=== PATIENT | female | born 1950 | race American Indian/Alaskan Native ===

== ENCOUNTER 2017-10-11 21:26 | Emergency (ER) | payer BC ==
[2017-10-11 21:33] VITALS: BMI 34.1
[2017-10-11] MEDS ORDERED: Oxymetazoline 0.05% Nasal Spray (30 ml) NS STA (21:47)
[2017-10-11] MEDS ORDERED: Lidocaine 2% Inj (20ml) SC STA (21:48)
--- NOTE | 2017-10-11 21:49 | ED PDOC ---
Arrival/HPI - General Chief Complaint: ENT Problem Time Seen by Provider: 10/11/17 21:46 Historian: Patient - History of Present Illness Narrative History of Present Illness (Text): 10/11/17 21:47 67 year old female, whose past medical history includes asthma, who presents to the Emergency department complaining of a nosebleed on the left side. Patient notes she was sleeping when she felt her nose itch and after scratching, noticed it was bleeding. Patient denies any fever, chills, chest pain, shortness of breath, nausea, vomiting, diarrhea, back pain, neck pain, headache , dizziness, or any other complaints. Time/Duration: 1-3 hours Symptom Onset: Sudden Symptom Course: Unchanged Activities at Onset: Light Context: Home (sleeping) Past Medical History - Provider Review Nursing Documentation Reviewed: Yes - Infectious Disease Hx of Infectious Diseases: None - Tetanus Immunization Tetanus Immunization: Unknown - Cardiac Hx Cardiac Disorders: Yes Hx Hypertension: Yes - Pulmonary Hx Respiratory Disorders: Yes Hx Asthma: Yes - Neurological Hx Neurological Disorder: Yes (TIA; current.) - HEENT Hx HEENT Disorder: No - Renal Hx Renal Disorder: No - Endocrine/Metabolic Hx Endocrine Disorders: No - Hematological/Oncological Hx Blood Disorders: No - Integumentary Hx Dermatological Disorder: Yes (Healing rash noted to back.) - Musculoskeletal/Rheumatological Hx Musculoskeletal Disorders: No Hx Falls: No - Gastrointestinal Hx Gastrointestinal Disorders: No - Genitourinary/Gynecological Hx Genitourinary Disorders: No - Psychiatric Hx Psychophysiologic Disorder: No Hx Substance Use: No - Past Surgical History Past Surgical History: No Previous - Suicidal Assessment Feels Threatened In Home Enviroment: No Family/Social History - Physician Review Nursing Documentation Reviewed: Yes Family/Social History: Unknown Family HX Smoking Status: Never Smoked Hx Alcohol Use: No Hx Substance Use: No Hx Substance Use Treatment: No Allergies/Home Meds Allergies/Adverse Reactions: Allergies codeine Adverse Reaction (Verified 10/11/17 21:33) HEADACHE Home Medications: Home Meds Medication Instructions Recorded Confirmed Albuterol Sulfate [Ventolin Hfa] 1 puff PO PRN PRN 03/27/13 10/11/17 Fluticasone/Salmeterol [Advair 1 puff INH DAILY 10/11/17 10/11/17 250-50 Diskus] Review of Systems - Physician Review All systems were reviewed & negative as marked: Yes - Review of Systems Constitutional: Normal Eyes: Normal ENT: Epistaxis Respiratory: Normal. absent: SOB, Cough Cardiovascular: Normal. absent: Chest Pain Gastrointestinal: Normal. absent: Abdominal Pain, Diarrhea, Nausea, Vomiting Genitourinary Female: Normal. absent: Dysuria, Frequency, Hematuria Musculoskeletal: Normal. absent: Back Pain, Neck Pain Skin: Normal. absent: Rash Neurological: Normal. absent: Headache, Dizziness Endocrine: Normal Hemo/Lymphatic: Normal Psychiatric: Normal Physical Exam Vital Signs Reviewed: Yes Vital Signs Temp Pulse Resp BP Pulse Ox 10/11/17 21:38 97.9 F 10/11/17 21:35 87 16 154/87 H 99 Temperature: Afebrile Blood Pressure: Hypertensive Pulse: Regular Respiratory Rate: Normal Appearance: Positive for: Well-Appearing, Non-Toxic, Comfortable Pain Distress: None Mental Status: Positive for: Alert and Oriented X 3 - Systems Exam Head: Present: Atraumatic, Normocephalic Pupils: Present: PERRL Extroacular Muscles: Present: EOMI Conjunctiva: Present: Normal Mouth: Present: Moist Mucous Membranes Nose (External): Present: Other (No blood on the anterior nare; no posterior hematomas) Nose (Internal): No: Septal Hematoma Neck: Present: Normal Range of Motion Respiratory/Chest: Present: Clear to Auscultation, Good Air Exchange. No: Respiratory Distress, Accessory Muscle Use Cardiovascular: Present: Regular Rate and Rhythm, Normal S1, S2. No: Murmurs Abdomen: No: Tenderness, Distention, Peritoneal Signs Back: Present: Normal Inspection Upper Extremity: Present: Normal Inspection. No: Cyanosis, Edema Lower Extremity: Present: Normal Inspection. No: Edema Neurological: Present: GCS=15, CN II-XII Intact, Speech Normal Skin: Present: Warm, Dry, Normal Color. No: Rashes Psychiatric: Present: Alert, Oriented x 3, Normal Insight, Normal Concentration Medical Decision Making ED Course and Treatment: 10/11/17 21:51 Impression: 67 year old female who presents to the emergency department complaining of a nosebleed. Plan: -- Lidocaine -- Oxymetazoline -- Reassess and disposition Progress Notes: 10/11/17 23:15 I applied 1:1 dose of lidocaine/oxymetazoline on cotton ball to her left nare. She sat for about 15 minutes. On reevaluation, there was a point point area of bleeding on the left nasal septum very proximal. Applied silver nitrate topically to control bleeding. 10/11/17 22:40 On reevaluation, patient no longer had any bleeding. She felt comfortable and had no complaints. No headache. She will make sure to follow up with ENT, Dr. Cantu in 2-3days. Advised to return to the ED if symptoms worsen or any other concern. - Medication Orders Current Medication Orders: Discontinued Medications Lidocaine HCl (Lidocaine 2% 20ml Vial) 0 ml SC ONCE STA Stop: 10/11/17 21:49 Last Admin: 10/11/17 22:14 Dose: Oxymetazoline HCl (Afrin 0.05%) 0 ml NS STAT STA Stop: 10/11/17 21:48 Last Admin: 10/11/17 22:14 Dose: Silver Nitrate (Silver Nitrate Topical Stick) 1 swa TOP ONCE ONE Stop: 10/11/17 23:12 - Scribe Statement The provider has reviewed the documentation as recorded by the Scribparth Hernandez All medical record entries made by the Scribe were at my direction and personally dictated by me. I have reviewed the chart and agree that the record accurately reflects my personal performance of the history, physical exam, medical decision making, and the department course for this patient. I have also personally directed, reviewed, and agree with the discharge instructions and disposition. Disposition/Present on Arrival - Present on Arrival Any Indicators Present on Arrival: No History of DVT/PE: No History of Uncontrolled Diabetes: No Urinary Catheter: No History of Decub. Ulcer: No History Surgical Site Infection Following: None - Disposition Have Diagnosis and Disposition been Completed?: Yes Diagnosis: Nosebleed Disposition: HOME/ ROUTINE Disposition Time: 23:20 Patient Plan: Discharge Patient Problems: Current Active Problems Problem Status Onset Nosebleed Acute Condition: IMPROVED Discharge Instructions (ExitCare): Nosebleeds Additional Instructions: Ms Ramey, thank you for letting us take care of you today. Your provider was Dr. Chance. You were treated for Nosebleed. The emergency medical care you received today was directed at your acute symptoms. If you were prescribed any medication, please fill it and take as directed. It may take several days for your symptoms to resolve. Return to the Emergency Department if your symptoms worsen, do not improve, or if you have any other problems. Please contact your doctor or call one of the physicians/clinics you have been referred to that are listed on the Patient Visit Information form that is included in your discharge packet. Bring any paperwork you were given at discharge with you along with any medications you are taking to your follow up visit. Our treatment cannot replace ongoing medical care by a primary care provider (PCP) outside of the emergency department. Thank you for allowing the [facility] team to be part of your care today. If you had an X-Ray or CT scan: A Radiologist will review the ED reading if any change in treatment is needed we will contact you. If you had a blood, urine, or wound culture: It will take several days for the results, if any change in treatment is needed we will contact you. If you had an STI test: It will take 48 hours for the results. Please call after 1 week if you have not heard back. Referrals: Mark Cantu DO [Staff Provider] - Follow up with primary Elda Josue MD [Primary Care Provider] - Follow up with primary Forms: [employer] (Amharic), WORK NOTE
[2017-10-11] MEDS ORDERED: Silver Nitrate Topical - Stick TOP ONE (23:11)
[2017-10-11 23:19] VITALS: BP 182/82; PULSE 82; RESP 17; TEMP 98; O2SAT 100
== END 2017-10-11 23:19 | disposition home or self-care (01) ==
LOC: ED 21:26
DX: R04.0 Epistaxis (principal); I10 Essential (primary) hypertension

== ENCOUNTER 2018-04-05 03:56 | Inpatient (IN) | payer BC ==
[2018-04-05 04:14] VITALS: BMI 32.9
[2018-04-05] MEDS ORDERED: Sodium Chloride 0.9% 1,000 ML IV SCH (04:30)
--- NOTE | 2018-04-05 04:34 | ED PDOC ---
Arrival/HPI - General Chief Complaint: High Blood Pressure Time Seen by Provider: 04/05/18 04:15 Historian: Patient - Critical Care Critical Care Minutes: 30 minutes - History of Present Illness Narrative History of Present Illness (Text): 04/05/18 04:18 68 year old female, whose past medical history includes hypertension, presents to the emergency department complaining of feeling heaviness to the right arm which she states first occurred earlier yesterday. Patient states she saw her doctor who prescribed her antihypertensive medication because of her elevated blood pressure. Patient states the heaviness seems to wax and wane throughout the day and again noted today upon awakening. She states she feels like she has difficulty writing her name at times. Patient also describes some discomfort to the right shoulder areas. Patient denies any change in speech, leg/arm weakness, fever, chills, chest pain, shortness of breath, nausea, vomiting, diarrhea, urinary symptoms, back pain, neck pain, headache, dizziness, or any other complaints. PMD: Dr. Josue Time/Duration: 24 hours Symptom Onset: Gradual Symptom Course: Intermittent Activities at Onset: Light Context: Home Past Medical History - Provider Review Nursing Documentation Reviewed: Yes - Infectious Disease Hx of Infectious Diseases: None - Tetanus Immunization Tetanus Immunization: Unknown - Reproductive Menopause: Yes - Cardiac Hx Cardiac Disorders: Yes Hx Hypertension: Yes - Pulmonary Hx Respiratory Disorders: Yes Hx Asthma: Yes - Neurological Hx Neurological Disorder: Yes (TIA; current.) - HEENT Hx HEENT Disorder: No - Renal Hx Renal Disorder: No - Endocrine/Metabolic Hx Endocrine Disorders: No - Hematological/Oncological Hx Blood Disorders: No - Integumentary Hx Dermatological Disorder: Yes (Healing rash noted to back.) - Musculoskeletal/Rheumatological Hx Musculoskeletal Disorders: No Hx Falls: No - Gastrointestinal Hx Gastrointestinal Disorders: No - Genitourinary/Gynecological Hx Genitourinary Disorders: No - Psychiatric Hx Psychophysiologic Disorder: No Hx Substance Use: No - Past Surgical History Past Surgical History: No Previous - Anesthesia Hx Anesthesia: No - Suicidal Assessment Feels Threatened In Home Enviroment: No Family/Social History - Physician Review Nursing Documentation Reviewed: Yes Family/Social History: No Known Family HX Smoking Status: Never Smoked Hx Alcohol Use: No Hx Substance Use: No Hx Substance Use Treatment: No Allergies/Home Meds Allergies/Adverse Reactions: Allergies codeine Adverse Reaction (Verified 04/05/18 04:17) HEADACHE Home Medications: Home Meds Medication Instructions Recorded Confirmed Albuterol Sulfate [Ventolin Hfa] 1 puff PO PRN PRN 03/27/13 04/05/18 Fluticasone/Salmeterol [Advair 1 puff INH DAILY 10/11/17 04/05/18 250-50 Diskus] Review of Systems - Physician Review All systems were reviewed & negative as marked: Yes - Review of Systems Constitutional: absent: Fevers, Other (Chills) Respiratory: absent: SOB Cardiovascular: absent: Chest Pain Gastrointestinal: absent: Abdominal Pain, Diarrhea, Nausea, Vomiting Genitourinary Female: absent: Dysuria, Frequency, Hematuria Musculoskeletal: absent: Back Pain, Neck Pain Neurological: Other (heaviness to right arm). absent: Headache, Dizziness, Speech Changes Physical Exam Vital Signs Reviewed: Yes Vital Signs Temp Pulse Resp BP Pulse Ox 04/05/18 04:13 98 F 87 20 161/92 H 99 Temperature: Afebrile Blood Pressure: Hypertensive Pulse: Regular Respiratory Rate: Normal Appearance: Positive for: Well-Appearing, Non-Toxic, Comfortable Pain Distress: None Mental Status: Positive for: Alert and Oriented X 3 - Systems Exam Head: Present: Atraumatic, Normocephalic Pupils: Present: PERRL Extroacular Muscles: Present: EOMI Conjunctiva: Present: Normal Mouth: Present: Moist Mucous Membranes Neck: Present: Normal Range of Motion Respiratory/Chest: Present: Clear to Auscultation, Good Air Exchange. No: Respiratory Distress, Accessory Muscle Use Cardiovascular: Present: Regular Rate and Rhythm, Normal S1, S2. No: Murmurs Abdomen: No: Tenderness, Distention, Peritoneal Signs Back: Present: Normal Inspection Upper Extremity: Present: Normal Inspection, Normal ROM. No: Cyanosis, Edema Lower Extremity: Present: Normal Inspection, Normal ROM. No: Edema Neurological: Present: GCS=15, CN II-XII Intact, Speech Normal, Motor Func Grossly Intact, Normal Sensory Function Skin: Present: Warm, Dry, Normal Color. No: Rashes Psychiatric: Present: Alert, Oriented x 3, Normal Insight, Normal Concentration Medical Decision Making ED Course and Treatment: 04/05/18 04:18 Impression: 68 year old female presents complaining of heaviness to her right arm that first occurred yesterday and also some discomfort to her right shoulder area. Plan: -- Labs -- EKG -- Stroke Team Consult -- Chest X-ray -- IV Fluids -- Reassess and disposition Progress Notes: 04/05/18 04:22 Code Stroke called. 04/05/18 04:41 Case discussed with Neurologist Dr. Tse who is aware and agrees with the plan. Recommends MRI/ MRA of brain to be done in the AM. Request Aspirin to be given. 04/05/18 05:16 CXR Impression: As read by me, no acute process. EXAM: CT Head Electronically signed on Apr 05, 2018 5:18:11 AM EST by: Tonia Carrizales M.D IMPRESSION: 1. Age-appropriate cerebellar and cerebral atrophy. 2. Mild chronic microvascular disease. 3. No evidence of acute intracranial pathology. 04/05/18 05:15 EKG shows NSR at 70 BPM with LVH, non-specific ST/T changes. Interpreted by me. 04/05/18 05:25 Case discussed with [employer]er and Dr. Nikhil Ernst who is aware and agrees with the plan. Accepts patient into hospitalist. - Critical Care Critical Care Minutes: 30 minutes - Lab Interpretations I have reviewed the lab results: Yes - RAD Interpretation Radiology Orders: 04/05/18 04:22 HEAD W/O (CODE STROKE) [CT] Stat CHEST PORTABLE [RAD] Stat - EKG Interpretation Interpreted by ED Physician: Yes Type: 12 lead EKG - Medication Orders Current Medication Orders: Sodium Chloride (Sodium Chloride 0.9%) 1,000 mls @ 100 mls/hr IV .Q10H [facility] NIHSS Scale ([place]) Time Performed: 04:18 - How Severe is the Stoke Baseline Level of Consciousness: 0=Alert LOC to Questions: 0=Both comments correct LOC to commands: 0=Obeys both correctly Best Gaze: 0=Normal Visual: 0=No visual loss Facial: 0=Normal Motor Arm - Left: 0=No drift Motor Arm - Right: 0=No drift Motor Leg - Left: 0=No drift Motor Leg - Right: 0=No drift Limb Ataxia: 0=Absent Sensory: 0=Normal Best Language: 0=No aphasia Dysarthia: 0=Normal articulation Extinction & Inattention (Neglect): 0=Normal, no object Score: 0 Risk Level: No Stroke Risk rTPA Inclusion/Exclusion - Refusal of Treatment Patient Refused Treatment: No - Inclusion Criteria for Altepase Patient is 18 years or Older: Yes The Clinical Diagnosis of Ischemic Stroke That is Causing a Potentially Disabling Neurological Deficit: No Time of Onset is Well Established to be Less Than 270 Minute Before Treatment Would Begin: Yes Risk/Benefit Discussed With Patient/Family Member Present: Yes - Exclusion Criteria for Altepase Uncontrolled Hypertension at Time of Treatment (Systolic BP above 185 or Diastolic BP above 110 mmHg): No Active Internal Bleeding: No Known Bleeding Diathesis Including but Not Limited to: Platelets Below 100,000/mm,PTT Above 40 sec After Heparin Use, Current Use of Oral Anitcoagulant With INR Greater Than 1.7 or PT Greater Than 15 secs: No Evidence of an Intracranial Hemorrhage: No Evidence of Major Acute Infarct With Signs Greater Than 1/3 MCA Territory: No Suspicion of Subarachnoid Hemorrhage on Pretreatment Evaluation Even if CT Head Negative For Hemorrhage: No - Warning to TPA With Conditions Following Conditions Weighed Against Anticipated Benefit: Yes Condition: Stroke Serevity Too Mild, Rapid Improvement - Scribe Statement The provider has reviewed the documentation as recorded by the Kaitlyn Quintanilla Provider Scribe Attestation: All medical record entries made by the Kaitlyn were at my direction and personally dictated by me. I have reviewed the chart and agree that the record accurately reflects my personal performance of the history, physical exam, medical decision making, and the department course for this patient. I have also personally directed, reviewed, and agree with the discharge instructions and disposition. Disposition/Present on Arrival - Present on Arrival Any Indicators Present on Arrival: No History of DVT/PE: No History of Uncontrolled Diabetes: No Urinary Catheter: No History of Decub. Ulcer: No History Surgical Site Infection Following: None - Disposition Have Diagnosis and Disposition been Completed?: Yes Diagnosis: TIA (transient ischemic attack), Hypertension Disposition: HOSPITALIZED Disposition Time: 05:31 Condition: STABLE
[2018-04-05 05:13] LABS: BASO # 0.02 K/mm3 (0.0-2.0); BASO % 0.3 % (0.0-3.0); EOS % 0.5 % (1.5-5.0); GRAN # 4.68 (1.4-6.5); GRAN % 76.3 % (50.0-68.0); LYMPH # 1.1 (1.2-3.4); LYMPH % 17.5 % (22.0-35.0); MEAN CELL VOLUME 93.3 fl (80.0-105.0); MEAN CORPUSCULAR HEMOGLOBIN 29.6 pg (25.0-35.0); MEAN CORPUSCULAR HGB CONC 31.8 g/dl (31.0-37.0); MEAN PLATELET VOLUME 10.4 fl (7.0-11.0); MONO # 0.3 (0.1-0.6); MONO % 5.4 % (1.0-6.0); RBC 3.71 10^6/uL (3.5-6.1); RED CELL DISTRIBUTION WIDTH 13.6 % (11.5-14.5); WHITE BLOOD COUNT 6.1 10^3/uL (4.5-11.0)
[2018-04-05 05:21] LABS: INR 1.01; PARTIAL THROMBOPLASTIN TIME 28.8 Seconds (25.1-36.5); PROTHROMBIN TIME 11.5 SECONDS (9.4-12.5)
[2018-04-05 05:23] LABS: ALB/GLOB RATIO 1.2 (1.1-1.8); ALBUMIN 4.1 g/dL (3.0-4.8); ALT/SGPT 19 U/L (7-56); AST/SGOT 24 U/L (14-36); BLOOD UREA NITROGEN 15 mg/dL (7-21); CALCIUM 9.4 mg/dL (8.4-10.5); GFR NON-AFRICAN AMERICAN > 60; HDL CHOLESTEROL 81 mg/dL (29-60)
--- NOTE | 2018-04-05 05:33 | CP.PCM.HP ---
History of Present Illness - History of Present Illness History of Present Illness: Nilson Fern, PGY1 Hospital H&P This is a 68 year old female with PMH of TIA in 03/2013, asthma, HTN and hyperthyoidism presenting to the ED for right should and arm "heaviness" that began in the evening. She states she went to her PMD on 03/04/18 and had a systolic BP of 180, and was started on an unknown medicine. After returning home, she noticed that her right shoulder was painful and she felt a heaviness in her right arm. She also states it was difficult to write with her right hand. She denies any relieving or aggravating factors. She denies any similar symptoms in the past. She denies any loss of sensation, muscle weakness, difficulty speaking and impaired balance. At time of examination, patient states symptoms have resolved and currently she denies any complaints. She denies CP, SOB, headaches, fevers, cough, back pain, abdominal pain, nausea, vomiting, diarrhea, constipation, urinary complaints, swelling, recent travel, sickness and trauma. 12 point ROS noted here, otherwise unremarkable. In ED, code stroke called. Patient given aspirin 325mg and 1L of NS. CXR shows no acute process and Head CT showed mild chronic microvascular disease and no evidence of acute intracranial pathology (f/u final reads). EKG showed NSR at 70bpm. PMD: Dr. Josue PMH: as above SH: denies smoking and drugs, occasional drinking Sx: denies surgeries FH: father has prostate cancer All: codeine Meds: rose mary jefferson [facility] Present on Admission - Present on Admission Any Indicators Present on Admission: No Past Patient History - Infectious Disease Hx of Infectious Diseases: None - Tetanus Immunizations Tetanus Immunization: Unknown - Past Social History Smoking Status: Never Smoked Alcohol: Occasional Drugs: Denies - CARDIAC Hx Cardiac Disorders: Yes Hx Hypertension: Yes - PULMONARY Hx Respiratory Disorders: Yes Hx Asthma: Yes - NEUROLOGICAL Hx Neurological Disorder: Yes (TIA; current.) - HEENT Hx HEENT Problems: No - RENAL Hx Chronic Kidney Disease: No - ENDOCRINE/METABOLIC Hx Endocrine Disorders: No - HEMATOLOGICAL/ONCOLOGICAL Hx Blood Disorders: No - INTEGUMENTARY Hx Dermatological Problems: Yes (Healing rash noted to back.) - MUSCULOSKELETAL/RHEUMATOLOGICAL Hx Musculoskeletal Disorders: No Hx Falls: No - GASTROINTESTINAL Hx Gastrointestinal Disorders: No - GENITOURINARY/GYNECOLOGICAL Hx Genitourinary Disorders: No - PSYCHIATRIC Hx Psychophysiologic Disorder: No Hx Substance Use: No - SURGICAL HISTORY Hx Surgeries: No - ANESTHESIA Hx Anesthesia: No Meds Allergies/Adverse Reactions: Allergies Allergy/AdvReac Type Severity Reaction Status Date / Time codeine AdvReac HEADACHE Verified 04/05/18 04:17 Physical Exam - Constitutional Appears: No Acute Distress - Head Exam Head Exam: ATRAUMATIC, NORMAL INSPECTION - Eye Exam Eye Exam: EOMI Pupil Exam: PERRL - ENT Exam ENT Exam: Mucous Membranes Moist - Respiratory Exam Respiratory Exam: Clear to Auscultation Bilateral. absent: Accessory Muscle Use, Respiratory Distress - Cardiovascular Exam Cardiovascular Exam: REGULAR RHYTHM, +S1, +S2 - GI/Abdominal Exam GI & Abdominal Exam: Normal Bowel Sounds. absent: Distended, Firm - Extremities Exam Extremities exam: Positive for: normal inspection. Negative for: calf tenderness - Back Exam Back exam: NORMAL INSPECTION. absent: paraspinal tenderness - Neurological Exam Neurological exam: Alert, CN II-XII Intact, Oriented x3, Reflexes Normal Additional comments: muscle strength in B/L upper and lower extremities are 5/5, no deficits apprecia cameron. Sensation intact B/L in upper and lower extremities, - Skin Skin Exam: Normal Color, Warm Results - Vital Signs Recent Vital Signs: Last Vital Signs Temp 98 F 04/05/18 04:13 Pulse 87 04/05/18 04:13 Resp 20 04/05/18 04:13 BP 161/92 H 04/05/18 04:13 Pulse Ox 99 04/05/18 04:13 - Labs Result Diagrams: 04/05/18 04:40 04/05/18 04:40 Labs: Laboratory Results - last 24 hr 04/05/18 04:40 WBC 6.1 RBC 3.71 Hgb 11.0 L Hct 34.6 L MCV 93.3 MCH 29.6 MCHC 31.8 RDW 13.6 Plt Count 287 MPV 10.4 Gran % 76.3 H Lymph % (Auto) 17.5 L [place] % (Auto) 5.4 Eos % (Auto) 0.5 L Baso % (Auto) 0.3 Gran # 4.68 Lymph # (Auto) 1.1 L [place] # (Auto) 0.3 Eos # (Auto) 0.0 Baso # (Auto) 0.02 Assessment & Plan - Assessment and Plan (Free Text) Assessment: This is a 68 year old female with PMH of TIA in 03/2013, asthma, HTN and hy perthyoidism presenting to the ED for right should and arm "heaviness" that began in the evening. Currently asymptomatic. Mita cummins called in ER. Plan: TIA: -CT Head shows mild chronic microvascular disease and no evidence of acute intracranial pathology, f/u final read -MRI/MRA pending -carotid US pending -continue ASA, lipitor -Neurology on consult -Nursing swallow screen -vital signs, neuro checks -NPO for now Hx of HTN: -patient started on anti hypertensive medication by PMD yesterday, states it starts with the letter "n" -confirm with [facility] [place] Anemia: -iron and TIBC pending Hx of asthma: -continue home advair, ventolin Hx of Hyperthyroidism: -TSH, T4 pending -not currently on medical treatment HLD: -lipid panel shows elevated cholesterol and LDL -started on lipitor, consider daily statin therapy on discharge -A1c pending PPX with heparin and protonix Patient seen and discussed with attending, Dr. Yifan Ernst
[2018-04-05 05:34] LABS: LDL CHOLESTEROL 152 mg/dL (0-129)
[2018-04-05 05:36] LABS: TROPONIN I < 0.01 ng/mL
[2018-04-05] MEDS ORDERED: Sodium Chloride 0.45% 1,000 ML IV SCH (06:00)
[2018-04-05 06:31] LABS: IRON 57 ug/dL (45-180)
[2018-04-05 06:40] LABS: % IRON SATURATION 24 % (20-55); TOTAL IRON BINDING CAPACITY 236 ug/dL (265-497)
[2018-04-05 06:48] LABS: T4 7.6 ug/dL (5.5-11.0)
--- NOTE | 2018-04-05 07:25 | CT ---
Date of service: 04/05/2018 PROCEDURE: CT HEAD WITHOUT CONTRAST. HISTORY: Code Stroke COMPARISON: None available. TECHNIQUE: Axial computed tomography images were obtained through the head/brain without intravenous contrast. Radiation dose: Total exam DLP = 803.23 mGy-cm. This CT exam was performed using one or more of the following dose reduction techniques: Automated exposure control, adjustment of the mA and/or kV according to patient size, and/or use of iterative reconstruction technique. FINDINGS: HEMORRHAGE: No intracranial hemorrhage. BRAIN: No mass effect or edema. Chronic microvascular changes are seen in the periventricular white matter and basal ganglia VENTRICLES: Unremarkable. No hydrocephalus. CALVARIUM: Unremarkable. PARANASAL SINUSES: Unremarkable as visualized. No significant inflammatory changes. MASTOID AIR CELLS: Unremarkable as visualized. No inflammatory changes. OTHER FINDINGS: The report concurs with the preliminary [facility] report IMPRESSION: No acute findings
[2018-04-05] MEDS ORDERED: Albuterol 0.042% Inhal Sol (1.25 mg/3 mL) UD IH PRN (08:00)
[2018-04-05] MEDS ORDERED: Arformoterol 15 mcg/2 ml Inh Sol IH SCH (08:00)
[2018-04-05] MEDS: Budesonide 0.25 mg/2 ml Inhal Susp UD IH SCH ×2 (08:35→19:48)
[2018-04-05] MEDS ORDERED: ALBUTEROL SULFATE PO PRN (09:01)
--- NOTE | 2018-04-05 09:12 | RAD ---
Date of service: 04/05/2018 HISTORY: Code Stroke COMPARISON: No prior. FINDINGS: LUNGS: No active pulmonary disease. PLEURA: No significant pleural effusion identified, no pneumothorax apparent. CARDIOVASCULAR: No aortic atherosclerotic calcification present. Normal cardiac size. No pulmonary vascular congestion. OSSEOUS STRUCTURES: No significant abnormalities. VISUALIZED UPPER ABDOMEN: Normal. OTHER FINDINGS: None. IMPRESSION: No active disease.
--- NOTE | 2018-04-05 09:23 | CARD ---
APPROVED REPORT Date of service: 04/05/2018 EKG Measurement Heart [id number] <Conclusion> Normal sinus rhythm Minimal voltage criteria for LVH, may be normal variant Borderline ECG
[2018-04-05] MEDS: Dextrose 5%/0.45% NS 1,000 ML IV SCH (09:27)
--- NOTE | 2018-04-05 12:45 | CT ---
Date of service: 04/05/2018 PROCEDURE: CT Angiography of the neck with contrast HISTORY: rule out stroke COMPARISON: None. TECHNIQUE: Contiguous axial images of the neck were obtained from the level of the skull-base to the superior mediastinum in the arteriographic phase of enhancement. Coronal and sagittal reformats or also generated. IV contrast dose: Radiation dose: Total exam DLP = 462.36 mGy-cm. This CT exam was performed using one or more of the following dose reduction techniques: Automated exposure control, adjustment of the mA and/or kV according to patient size, and/or use of iterative reconstruction technique. FINDINGS: RIGHT CAROTID ARTERIES: Common Carotid Artery: Normal. Carotid Bifurcation: Normal. Internal Carotid Artery:Minimal calcified plaque without stenosis External Carotid Artery (proximal branches): Normal. LEFT CAROTID ARTERIES: Common Carotid Artery: Normal. Carotid Bifurcation: Normal. Internal Carotid Artery:Minimal calcified plaque without stenosis External Carotid Artery (proximal branches): Normal. VERTEBRAL ARTERIES: Right Vertebral Artery: Normal. Left Vertebral Artery: Normal. OTHER FINDINGS: Minimal calcified plaque without stenosis in both internal carotid arteries. IMPRESSION: Normal CT Angiography of the neck. PROCEDURE: CT Angiography of the Brain. HISTORY: rule out stroke COMPARISON: None available. TECHNIQUE: CT angiography of the intracranial arteries was performed. Coronal and sagittal maximum intensity projection reformated images were generated. Radiation dose: Total exam DLP = 462.36 mGy-cm. This CT exam was performed using one or more of the following dose reduction techniques: Automated exposure control, adjustment of the mA and/or kV according to patient size, and/or use of iterative reconstruction technique. FINDINGS: INTERNAL CEREBRAL ARTERIES: Unremarkable. The skull base, petrous, cavernous and supraclinoid segments are bilaterally widely patent. ANTERIOR CEREBRAL ARTERIES: Unremarkable. A1 and A2 segments are widely patent. Smaller distal branches unremarkable, as visualized. MIDDLE CEREBRAL ARTERIES: Unremarkable. M1 and M2 segments are widely patent. Perisylvian branches grossly symmetric. POSTERIOR CIRCULATION: Basilar Artery: Unremarkable. Distal Vertebral Arteries: Unremarkable. Posterior Cerebral Arteries: Unremarkable. Posterior Inferior Cerebellar Arteries: Unremarkable. ANEURYSM/ VASCULAR MALFORMATIONS: None. OTHER FINDINGS: None. IMPRESSION: Unremarkable CT Angiography of the Brain.
[2018-04-05 17:12] LABS: PH,URINE 6.5 (4.7-8.0); URINE BILIRUBIN NEGATIVE (NEGATIVE); URINE BLOOD NEGATIVE (NEGATIVE); URINE GLUCOSE (UA) NEGATIVE (NEGATIVE); URINE LEUKOCYTE ESTERASE NEGATIVE Leu/uL (NEGATIVE); URINE PROTEIN NEGATIVE mg/dL (<30 mg/dL); URINE UROBILINOGEN 0.2 E.U./dL (<1 E.U./dL)
[2018-04-05 17:41] LABS: URINE APPEARANCE SL CLOUDY (CLEAR); URINE COLOR LIGHT YELLOW (YELLOW)
--- NOTE | 2018-04-05 18:28 | CP.PCM.CON ---
History of Present Illness - History of Present Illness History of Present Illness: Neurology Consultation Note: Mrs. Ramey is a 68-year-old woman with a past medical history of asthma, HTN, and previous TIAs, who went to her doctor yesterday and was started on a new BP medication. She then went home and went to sleep at 10 PM and was normal. She woke up at 4 AM with right hand weakness. She presented to the ED in the morning and was outside the 4.5 hour time window for IV tPA. CT of the head was normal and CTA of the head/neck were also normal. Today, she also has a mild right facial droop and has some strange sensation around the mouth as well as the right handgrip weakness and right arm weakness. Review of Systems - Constitutional Constitutional: As Per HPI - EENT Eyes: absent: As Per HPI, Blind Spots, Blurred Vision, Change in Vision, Decreased Night Vision, Diplopia, Discharge, Dry Eye, Exophthalmos, Floaters, Irritation, Itchy Eyes, Loss of Peripheral Vision, Pain, Photophobia, Requires Corrective Lenses, Sees Flashes, Spots in Vision, Tunnel Vision, Other Visual Disturbances, Loss of Vision, Other Ears: absent: As Per HPI, Decreased Hearing, Ear Discharge, Ear Pain, Tinnitus, Abnormal Hearing, Disequilibrium, Dizziness, Other Nose/Mouth/Throat: absent: As Per HPI, Epistaxis, Nasal Congestion, Nasal Discharge, Nasal Obstruction, Nasal Trauma, Nose Pain, Post Nasal Drip, Sinus Pain, Sinus Pressure, Bleeding Gums, Change in Voice, Dental Pain, Dry Mouth, Dysphagia, Halitosis, Hoarsness, Lip Swelling, Mouth Lesions, Mouth Pain, Odynophagia, Sore Throat, Throat Swelling, Tongue Swelling, Facial Pain, Neck Pain, Neck Mass, Other - Breasts Breasts: absent: As Per HPI, Change in Shape, Mass, Pain, Nipple Discharge, Nipple Inversion, Skin Changes, Swelling, Other - Cardiovascular Cardiovascular: absent: As Per HPI, Acrocyanosis, Chest Pain, Chest Pain at Rest, Chest Pain with Activity, Claudication, Diaphoresis, Dyspnea, Dyspnea on Exertion, Edema, Irregular Heart Rhythm, Pain Radiating to Arm/Neck/Jaw, Leg Edema, Leg Ulcers, Lightheadedness, Orthopnea, Palpitations, Paroxysmal Nocturnal Dyspnea, Pedal Edema, Radiating Pain, Rapid Heart Rate, Slow Heart Rate, Syncope, Other - Respiratory Respiratory: absent: As Per HPI, Cough, Dyspnea, Hemoptysis, Dyspnea on Exertion, Wheezing, Snoring, Stridor, Pain on Inspiration, Chest Congestion, Excessive Mucous Production, Change in Mucous Color, Pain with Coughing, Other - Gastrointestinal Gastrointestinal: absent: As Per HPI, Abdominal Pain, Belching, Bloating, Change in Bowel Habits, Change in Stool Character, Coffee Ground Emesis, Constipation, Cramping, Diarrhea, Dyspepsia, Dysphagia, Early Satiety, Excessive Flatus, Fecal Incontinence, Heartburn, Hematemesis, Hematochezia, Loose Stools, Melena, Nausea, Odynophagia, Temesmus, Vomiting, Other - Genitourinary Genitourinary: absent: As Per HPI, Change in Urinary Stream, Difficulty Urinating, Dysuria, Flank Pain, Hematuria, Pyuria, Nocturia, Urinary Incontinence, Urinary Frequency, Urinary Hesitance, Urinary Urgency, Voiding Freq/Small Amts, Freq UTI, Hx Renal/Bladder Calculi, Hx /Renal Surgery, Bladder Distension, Other - Musculoskeletal Musculoskeletal: absent: As Per HPI, Abnormal Gait, Arthralgias, Atrophy, Back Pain, Deformity, Joint Swelling, Limited Range of Motion, Loss of Height, Muscle Cramps, Muscle Weakness, Myalgias, Neck Pain, Numbness, Radiating Pain into Limb, Stiffness, Tingling, Other - Integumentary Integumentary: absent: As Per HPI, Acne, Alopecia, Bleeding Lesions, Change in Hair, Change in Nails, Change in Pigmentation, Changing Lesions, Dry Skin, Erythema, Furuncle, Hirsutism, Lesions, New Lesions, Non-Healing Lesions, Photosensitivity, Pruritus, Rash, Skin Pain, Skin Ulcer, Sores, Striae, Swelling, Unusual Bruising, Wounds, Jaundice, Other - Neurological Neurological: As Per HPI - Psychiatric Psychiatric: absent: As Per HPI, Abnormal Sleep Pattern, Anhedonia, Anxiety, Auditory Hallucinations, Behavioral Changes, Change in Appetite, Change in Libido, Confusion, Depression, Difficulty Concentrating, Hallucinations, Ho micidal Ideation, Hopelessness, Irritability, Memory Loss, Mood Swings, Panic Attacks, Paranoia, Suicidal Ideation, Visual Hallucinations, Tactile Hallucinations, Other - Endocrine Endocrine: absent: As Per HPI, Change in Body Appearance, Change in Libido, Cold Intolorance, Deepening of Voice, Excessive Sweating, Fatigue, Flushing, Heat Intolorance, Increase in Ring/Shoe/Hat Size, Palpitations, Polydipsia, Polyphagia, Polyuria, Other - Hematologic/Lymphatic Hematologic: absent: As Per HPI, Easy Bleeding, Easy Bruising, Lymphadenopathy, Other Past Patient History - Infectious Disease Hx of Infectious Diseases: None - Tetanus Immunizations Tetanus Immunization: Unknown - Past Social History Smoking Status: Unknown If Ever Smoked - CARDIAC Hx Cardiac Disorders: Yes Hx Hypertension: Yes - PULMONARY Hx Respiratory Disorders: Yes Hx Asthma: Yes - NEUROLOGICAL Hx Transient Ischemic Attacks (TIA): Yes - HEENT Hx HEENT Problems: No - RENAL Hx Chronic Kidney Disease: No - ENDOCRINE/METABOLIC Hx Endocrine Disorders: No - HEMATOLOGICAL/ONCOLOGICAL Hx Blood Disorders: No - INTEGUMENTARY Hx Dermatological Problems: Yes (Healing rash noted to back.) - MUSCULOSKELETAL/RHEUMATOLOGICAL Hx Falls: No - GASTROINTESTINAL Hx Gastrointestinal Disorders: No - GENITOURINARY/GYNECOLOGICAL Hx Genitourinary Disorders: No - PSYCHIATRIC Hx Substance Use: No - SURGICAL HISTORY Hx Surgeries: No - ANESTHESIA Hx Anesthesia: No Meds Allergies/Adverse Reactions: Allergies Allergy/AdvReac Type Severity Reaction Status Date / Time codeine AdvReac HEADACHE Verified 04/05/18 04:17 - Medications Medications: Current Medications Albuterol Sulfate (Albuterol 0.042% Inhal Sonia (1.25mg/3ml) Ud) 1.25 mg IH [id number] PRN PRN Reason: Wheezing Arformoterol Tartrate (Brovana) 15 mcg IH [id number] [facility] Aspirin (Aspirin Chewable) 81 mg PO DAILY [facility] Atorvastatin Calcium (Lipitor) 40 mg PO DIN [facility] Last Admin: 04/05/18 17:03 Dose: 40 mg Budesonide (Pulmicort Respules) 0.25 mg IH [id number] [facility] Last Admin: 04/05/18 08:35 Dose: 0.25 mg Heparin Sodium (Porcine) (Heparin) 5,000 units SC Q12 [facility]; Protocol Last Admin: 04/05/18 10:54 Dose: 5,000 units Hydralazine HCl (Apresoline) 10 mg IVP Q6 PRN PRN Reason: Other Dextrose/Sodium Chloride (Dextrose 5%/0.45% Ns 1000 Ml) 1,000 mls @ 50 mls/hr IV .Q20H [facility] Last Admin: 04/05/18 09:27 Dose: 50 mls/hr Pantoprazole Sodium (Protonix Ec Tab) 40 mg PO 0600 [facility] Physical Exam - Constitutional Appears: Well - Head Exam Head Exam: ATRAUMATIC, NORMAL INSPECTION, NORMOCEPHALIC - Eye Exam Eye Exam: EOMI, Normal appearance, PERRL - ENT Exam ENT Exam: Mucous Membranes Moist, Normal Exam - Neck Exam Neck exam: Positive for: Normal Inspection - Respiratory Exam Respiratory Exam: Clear to Auscultation Bilateral, NORMAL BREATHING PATTERN - Cardiovascular Exam Cardiovascular Exam: REGULAR RHYTHM, +S1, +S2 - GI/Abdominal Exam GI & Abdominal Exam: Normal Bowel Sounds, Soft. absent: Tenderness - Rectal Exam Rectal Exam: Deferred - Extremities Exam Extremities exam: Positive for: normal inspection - Neurological Exam Neurological exam: Abnormal Gait, Alert, CN II-XII Intact, Oriented x3, Reflexes Normal Additional comments: Right hand costume mistress is 3/5, right arm pronator drift, right facial droop. No sensory changes noted. Lower extremities are normal in strength. NIHSS= 3 Results - Vital Signs Recent Vital Signs: Last Vital Signs Temp 98 F 04/05/18 16:58 Pulse 70 04/05/18 18:00 Resp 20 04/05/18 16:58 BP 182/90 H 04/05/18 16:58 Pulse Ox 97 04/05/18 16:58 - Labs Result Diagrams: 04/05/18 04:40 04/05/18 04:40 Labs: Laboratory Results - last 24 hr 04/05/18 04/05/18 04/05/18 04:40 04:40 04:40 WBC 6.1 RBC 3.71 Hgb 11.0 L Hct 34.6 L MCV 93.3 MCH 29.6 MCHC 31.8 RDW 13.6 Plt Count 287 MPV 10.4 Gran % 76.3 H Lymph % (Auto) 17.5 L [place] % (Auto) 5.4 Eos % (Auto) 0.5 L Baso % (Auto) 0.3 Gran # 4.68 Lymph # (Auto) 1.1 L [place] # (Auto) 0.3 Eos # (Auto) 0.0 Baso # (Auto) 0.02 PT 11.5 INR 1.01 APTT 28.8 Sodium 140 Potassium 3.7 Chloride 105 Carbon Dioxide 31 Anion Gap 8 L BUN 15 Creatinine 0.9 Est GFR ( Amer) > 60 Est GFR (Non-Af Amer) > 60 POC Glucose (mg/dL) Random Glucose 107 Hemoglobin A1c Calcium 9.4 Phosphorus Magnesium Iron TIBC % Saturation Total Bilirubin 0.3 AST 24 ALT 19 Alkaline Phosphatase 96 Troponin I < 0.01 Total Protein 7.5 Albumin 4.1 Globulin 3.3 Albumin/Globulin Ratio 1.2 Triglycerides 61 Cholesterol 276 H LDL Cholesterol Direct 152 H HDL Cholesterol 81 H Thyroxine (T4) TSH 3rd Generation Urine Color Urine Appearance Urine pH Ur Specific Leonard Urine Protein Urine Glucose (UA) Urine Ketones Urine Blood Urine Nitrate Urine Bilirubin Urine Urobilinogen Ur Leukocyte Esterase Blood Type Blood Type Confirm Antibody Screen BBK History Checked 04/05/18 04/05/18 04/05/18 04:40 04:40 04:40 WBC RBC Hgb Hct MCV MCH MCHC RDW Plt Count MPV Gran % Lymph % (Auto) [place] % (Auto) Eos % (Auto) Baso % (Auto) Gran # Lymph # (Auto) [place] # (Auto) Eos # (Auto) Baso # (Auto) PT INR APTT Sodium Potassium Chloride Carbon Dioxide Anion Gap BUN Creatinine Est GFR ( Amer) Est GFR (Non-Af Amer) POC Glucose (mg/dL) Random Glucose Hemoglobin A1c 6.0 Calcium Phosphorus Magnesium Iron TIBC % Saturation Total Bilirubin AST ALT Alkaline Phosphatase Troponin I Total Protein Albumin Globulin Albumin/Globulin Ratio Triglycerides Cholesterol LDL Cholesterol Direct HDL Cholesterol Thyroxine (T4) 7.6 TSH 3rd Generation 0.64 Urine Color Urine Appearance Urine pH Ur Specific Leonard Urine Protein Urine Glucose (UA) Urine Ketones Urine Blood Urine Nitrate Urine Bilirubin Urine Urobilinogen Ur Leukocyte Esterase Blood Type A POSITIVE Blood Type Confirm Antibody Screen Negative BBK History Checked No verified bt 04/05/18 04/05/18 04/05/18 04:40 04:40 06:40 WBC RBC Hgb Hct MCV MCH MCHC RDW Plt Count MPV Gran % Lymph % (Auto) [place] % (Auto) Eos % (Auto) Baso % (Auto) Gran # Lymph # (Auto) [place] # (Auto) Eos # (Auto) Baso # (Auto) PT INR APTT Sodium Potassium Chloride Carbon Dioxide Anion Gap BUN Creatinine Est GFR ( Amer) Est GFR (Non-Af Amer) POC Glucose (mg/dL) Random Glucose Hemoglobin A1c Calcium Phosphorus 3.2 Magnesium 2.0 Iron 57 TIBC 236 L % Saturation 24 Total Bilirubin AST ALT Alkaline Phosphatase Troponin I Total Protein Albumin Globulin Albumin/Globulin Ratio Triglycerides Cholesterol LDL Cholesterol Direct HDL Cholesterol Thyroxine (T4) TSH 3rd Generation Urine Color Urine Appearance Urine pH Ur Specific Leonard Urine Protein Urine Glucose (UA) Urine Ketones Urine Blood Urine Nitrate Urine Bilirubin Urine Urobilinogen Ur Leukocyte Esterase Blood Type Blood Type Confirm A POSITIVE Antibody Screen BBK History Checked 04/05/18 04/05/18 04/05/18 08:02 13:55 15:51 WBC RBC Hgb Hct MCV MCH MCHC RDW Plt Count MPV Gran % Lymph % (Auto) [place] % (Auto) Eos % (Auto) Baso % (Auto) Gran # Lymph # (Auto) [place] # (Auto) Eos # (Auto) Baso # (Auto) PT INR APTT Sodium Potassium Chloride Carbon Dioxide Anion Gap BUN Creatinine Est GFR ( Amer) Est GFR (Non-Af Amer) POC Glucose (mg/dL) 85 110 90 Random Glucose Hemoglobin A1c Calcium Phosphorus Magnesium Iron TIBC % Saturation Total Bilirubin AST ALT Alkaline Phosphatase Troponin I Total Protein Albumin Globulin Albumin/Globulin Ratio Triglycerides Cholesterol LDL Cholesterol Direct HDL Cholesterol Thyroxine (T4) TSH 3rd Generation Urine Color Urine Appearance Urine pH Ur Specific Leonard Urine Protein Urine Glucose (UA) Urine Ketones Urine Blood Urine Nitrate Urine Bilirubin Urine Urobilinogen Ur Leukocyte Esterase Blood Type Blood Type Confirm Antibody Screen BBK History Checked 04/05/18 16:45 WBC RBC Hgb Hct MCV MCH MCHC RDW Plt Count MPV Gran % Lymph % (Auto) [place] % (Auto) Eos % (Auto) Baso % (Auto) Gran # Lymph # (Auto) [place] # (Auto) Eos # (Auto) Baso # (Auto) PT INR APTT Sodium Potassium Chloride Carbon Dioxide Anion Gap BUN Creatinine Est GFR ( Amer) Est GFR (Non-Af Amer) POC Glucose (mg/dL) Random Glucose Hemoglobin A1c Calcium Phosphorus Magnesium Iron TIBC % Saturation Total Bilirubin AST ALT Alkaline Phosphatase Troponin I Total Protein Albumin Globulin Albumin/Globulin Ratio Triglycerides Cholesterol LDL Cholesterol Direct HDL Cholesterol Thyroxine (T4) TSH 3rd Generation Urine Color Light yellow Urine Appearance Sl cloudy Urine pH 6.5 Ur Specific Leonard <= 1.005 Urine Protein Negative Urine Glucose (UA) Negative Urine Ketones Negative Urine Blood Negative Urine Nitrate Negative Urine Bilirubin Negative Urine Urobilinogen 0.2 Ur Leukocyte Esterase Negative Blood Type Blood Type Confirm Antibody Screen BBK History Checked Assessment & Plan (1) Ischemic stroke Assessment and Plan: Likely a left basal ganglia or posterior limb of the internal capsule acute ischemic stroke since there are no obvious large vessel occlusions on CTA. I recommend the followin. Telemetry 2. MRI brain without contrast 3. Echocardiogram 4. Permissive HTN (only treat BP that is higher than 220/110 mm Hg for the next 24 hours) 5. Fluids with NS at 100 mL/hr 6. Load with plavix 300 mg and continue aspirin 81 mg daily along with Plavix 75 mg daily. 7. Check lipid panel, HbA1c, B12, folate, TSH, homocysteine 8. PT/OT eval and treatment 9. Case management consult Thank you for this consultation. Status: Acute
[2018-04-06] MEDS: Pantoprazole 40 mg EC Tab PO SCH (06:00)
[2018-04-06 07:09] LABS: BASO # 0.02 K/mm3 (0.0-2.0); BASO % 0.4 % (0.0-3.0); EOS # 0.1 (0.0-0.7); EOS % 2.1 % (1.5-5.0); GRAN # 3.13 (1.4-6.5); GRAN % 64.5 % (50.0-68.0); HEMOGLOBIN 10.8 g/dL (12.0-16.0); LYMPH # 1.3 (1.2-3.4); LYMPH % 26.2 % (22.0-35.0); MEAN CELL VOLUME 92.6 fl (80.0-105.0); MEAN CORPUSCULAR HEMOGLOBIN 29.5 pg (25.0-35.0); MEAN CORPUSCULAR HGB CONC 31.9 g/dl (31.0-37.0); MONO # 0.3 (0.1-0.6); MONO % 6.8 % (1.0-6.0); RBC 3.66 10^6/uL (3.5-6.1); RED CELL DISTRIBUTION WIDTH 13.7 % (11.5-14.5); WHITE BLOOD COUNT 4.9 10^3/uL (4.5-11.0)
--- NOTE | 2018-04-06 07:16 | CP.PCM.PN ---
<Eliud Horton - Last Filed: 04/06/18 20:26> Subjective - Date & Time of Evaluation Date of Evaluation: 04/06/18 Time of Evaluation: 07:15 - Subjective Subjective: PGY-1 Medicine Progress Note for Dr. Rodney Patient seen and examined sitting at bedside this AM. No acute overnight events reported. Patient's R arm weakness/heaviness remains at baseline, continues to endorse R sided perioral numbness/tingling. No headaches, changes in vision, dizziness, focal deficits, fevers/chills, chest pain, palpitations, sob, cough, n/v/d/c. Objective - Vital Signs/Intake and Output Vital Signs (last 24 hours): Temp Pulse Resp BP Pulse Ox 98.0 F 70 20 136/68 98 04/06/18 06:00 04/06/18 06:00 04/06/18 06:00 04/06/18 06:00 04/06/18 06:00 Intake and Output: 04/06/18 04/06/18 06:59 18:59 Intake Total 120 Balance 120 - Medications Medications: Current Medications Acetaminophen (Tylenol 325mg Tab) 650 mg PO Q6H PRN PRN Reason: Pain, moderate (4-7) Last Admin: 04/05/18 21:57 Dose: 650 mg Albuterol Sulfate (Albuterol 0.042% Inhal Sonia (1.25mg/3ml) Ud) 1.25 mg IH [id number] PRN PRN Reason: Wheezing Arformoterol Tartrate (Brovana) 15 mcg IH [id number] [facility] Aspirin (Aspirin Chewable) 81 mg PO DAILY [facility] Atorvastatin Calcium (Lipitor) 40 mg PO DIN [facility] Last Admin: 04/05/18 17:03 Dose: 40 mg Budesonide (Pulmicort Respules) 0.25 mg IH [id number] [facility] Last Admin: 04/05/18 19:48 Dose: 0.25 mg Clopidogrel Bisulfate (Plavix) 75 mg PO DAILY [facility] Heparin Sodium (Porcine) (Heparin) 5,000 units SC Q12 [facility]; Protocol Last Admin: 04/05/18 21:02 Dose: 5,000 units Hydralazine HCl (Apresoline) 10 mg IVP Q6 PRN PRN Reason: Other Dextrose/Sodium Chloride (Dextrose 5%/0.45% Ns 1000 Ml) 1,000 mls @ 50 mls/hr IV .Q20H [facility] Last Admin: 04/05/18 09:27 Dose: 50 mls/hr Pantoprazole Sodium (Protonix Ec Tab) 40 mg PO 0600 [facility] Last Admin: 04/06/18 06:00 Dose: 40 mg - Labs Labs: 04/05/18 04:40 04/05/18 04:40 PT 11.5 SECONDS (9.4-12.5) 04/05/18 04:40 INR 1.01 04/05/18 04:40 APTT 28.8 Seconds (25.1-36.5) 04/05/18 04:40 - Constitutional Appears: Non-toxic, No Acute Distress - Head Exam Head Exam: ATRAUMATIC, NORMAL INSPECTION, NORMOCEPHALIC - Eye Exam Eye Exam: EOMI, Normal appearance - ENT Exam ENT Exam: Mucous Membranes Moist, Normal Exam - Neck Exam Neck Exam: Full ROM, Normal Inspection - Respiratory Exam Respiratory Exam: Clear to Ausculation Bilateral, NORMAL BREATHING PATTERN. absent: Accessory Muscle Use, Rales, Rhonchi, Wheezes, Respiratory Distress, Stridor - Cardiovascular Exam Cardiovascular Exam: REGULAR RHYTHM, +S1, +S2 - GI/Abdominal Exam GI & Abdominal Exam: Soft, Normal Bowel Sounds. absent: Distended, Firm, Guarding, Rigid, Tenderness, Organomegaly - Extremities Exam Extremities Exam: Normal Capillary Refill, Normal Inspection. absent: Calf Tenderness, Joint Swelling, Pedal Edema - Back Exam Back Exam: NORMAL INSPECTION - Neurological Exam Neurological Exam: Alert, Awake, Oriented x3 Neuro motor strength exam: Left Upper Extremity: 5, Right Upper Extremity: 3, Left Lower Extremity: 5, Right Lower Extremity: 5 Additional comments: Mild R sided facial droop R pronator drift sensation intact b/l - Psychiatric Exam Psychiatric exam: Normal Affect, Normal Mood - Skin Skin Exam: Dry, Intact, Normal Color, Warm Assessment and Plan - Assessment and Plan (Free Text) Assessment: 68 yo F with PMHx of asthma, HTN, and previous TIA (2012) presenting with evaluation and treatment of RUE weakness. Code stroke was call in the ED. Patient was outside the time interval for tPA. MRI findings demonstrate acute ischemic stroke. Plan: Acute ischemic stroke -Nursing swallow screen -vital signs, neuro checks -Imaging -CXR (04/05): no active disease -CT head (04/05): no acute intracranial findings, mild microvascular disease -CTA head/neck (04/05): no acute findings -MRI head (04/06): acute infarct 6x11 mm in L basal ganglia, posterior limb of the internal capsule -MRA head (04/06): unremarkable -Echo (04/06): EF 63%, mild concentric LVH; thickened aortic and mitral valve leaflets but valve openings normal -f/u Carotid artery ultrasound -Neurology recs (Dr. Tse) appreciated -allow for permissive HTN (only treat BP that is higher than 220/110 mm Hg until ~ end of 04/06/2018) - recommend IVF NS at 100 mL/hr - continue secondary stroke prevention with aspirin 81 mg daily, plavix 75 mg daily, and statin - keep patient euglycemic, normothermic - continue PT/OT therapy Hx of HTN -called [facility] in [place], pt on home norvasc 5 mg PO daily Anemia -iron and TIBC wnl Hx of asthma -continue home advair, ventolin Hx of Hyperthyroidism -TSH, T4 wnl -not currently on medical treatment HLD -lipid panel shows elevated cholesterol and LDL -started on lipitor, consider daily statin therapy on discharge -A1c 6.0 PPx, Diet, Disposition -DVT: heparin -GI: protonix -Diet: HHD -Dispo: continue aggressive PT/OT per neuro. Will monitor Case discussed with Dr. Rashaun Horton DO, PGY-1 <Catrachito Rodney - Last Filed: 04/07/18 06:48> Objective - Vital Signs/Intake and Output Vital Signs (last 24 hours): Temp Pulse Resp BP Pulse Ox 98.2 F 68 19 165/89 H 95 04/07/18 06:00 04/07/18 06:00 04/07/18 06:00 04/07/18 06:00 04/07/18 06:00 Intake and Output: 04/06/18 04/07/18 18:59 06:59 Intake Total 2360 Output Total 8 Balance 2352 - Medications Medications: Current Medications Acetaminophen (Tylenol 325mg Tab) 650 mg PO Q6H PRN PRN Reason: Pain, moderate (4-7) Last Admin: 04/05/18 21:57 Dose: 650 mg Albuterol Sulfate (Albuterol 0.042% Inhal Sonia (1.25mg/3ml) Ud) 1.25 mg IH [id number] PRN PRN Reason: Wheezing Amlodipine Besylate (Norvasc) 5 mg PO DAILY [facility] Arformoterol Tartrate (Brovana) 15 mcg IH [id number] [facility] Aspirin (Aspirin Chewable) 81 mg PO DAILY [facility] Last Admin: 04/06/18 09:36 Dose: 81 mg Atorvastatin Calcium (Lipitor) 40 mg PO DIN [facility] Last Admin: 04/06/18 18:00 Dose: 40 mg Budesonide (Pulmicort Respules) 0.25 mg IH [id number] [facility] Last Admin: 04/06/18 19:57 Dose: 0.25 mg Clopidogrel Bisulfate (Plavix) 75 mg PO DAILY [facility] Last Admin: 04/06/18 09:36 Dose: 75 mg Heparin Sodium (Porcine) (Heparin) 5,000 units SC Q12 [facility]; Protocol Last Admin: 04/06/18 21:45 Dose: 5,000 units Hydralazine HCl (Apresoline) 10 mg IVP Q6 PRN PRN Reason: Other Dextrose/Sodium Chloride (Dextrose 5%/0.45% Ns 1000 Ml) 1,000 mls @ 50 mls/hr IV .Q20H [facility] Last Admin: 04/06/18 21:46 Dose: Not Given Pantoprazole Sodium (Protonix Ec Tab) 40 mg PO 0600 [facility] Last Admin: 04/07/18 05:20 Dose: 40 mg - Labs Labs: 04/06/18 06:30 04/06/18 06:30 PT 11.5 SECONDS (9.4-12.5) 04/05/18 04:40 INR 1.01 04/05/18 04:40 APTT 28.8 Seconds (25.1-36.5) 04/05/18 04:40 Attending/Attestation - Attestation I have personally seen and examined this patient.: Yes I have fully participated in the care of the patient.: Yes I have reviewed all pertinent clinical information, including history, physical exam and plan: Yes Notes (Text): 04/06/18 68 year old female with past medical history of asthma, hypertension and prior TIA who presented with right upper extremity weakness. CT head and CTA/MRA head were negative for acute findings. However MRI brain showed acute infarct in left basal ganglia, posterior limb of the internal capsule. Echocardiogram and carotid dopplers were reviewed. Neurology is following. Patient is on aspirin, plavix and statin. PT evaluation was appreciated who recommended acute rehab. Catrachito Rodney MD Hospitalist.
[2018-04-06 07:31] LABS: ALB/GLOB RATIO 1.2 (1.1-1.8); ALBUMIN 3.9 g/dL (3.0-4.8); ALT/SGPT 19 U/L (7-56); AST/SGOT 23 U/L (14-36); BLOOD UREA NITROGEN 10 mg/dL (7-21); GFR NON-AFRICAN AMERICAN > 60
[2018-04-06] MEDS: Budesonide 0.25 mg/2 ml Inhal Susp UD IH SCH ×2 (07:53→19:57)
--- NOTE | 2018-04-06 08:04 | CP.PCM.PN ---
Subjective - Date & Time of Evaluation Date of Evaluation: 04/06/18 Time of Evaluation: 10:00 - Subjective Subjective: Barry Dawson- Internal Medicine Resident- Progress Note on Behalf of Neurology Team Subjective: Patient seen and examined at bedside. No acute events overnight. Patient states right arm and hand weakness remains at baseline. Offers no new complaints at this time. Denies headache, confusion, dizziness, acute vision/auditory changes, weakness, focal deficits. Further denies fever, chills, chest pain, SOB. 12 point ROS negative except as indicated in HPI Physical Examination: - Constitutional Appears: No acute distress - Head Exam Head Exam: ATRAUMATIC, NORMOCEPHALIC - Eye Exam Eye Exam: EOMI - ENT Exam ENT Exam: Mucous Membranes Moist - Neck Exam Neck Exam: Full ROM - Respiratory Exam Respiratory Exam: NORMAL BREATHING PATTERN. 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 Left Upper extremity 5/5 muscle strength, Lower extremities 5/5 muscle strength, sensation is intact to touch. - Psychiatric Exam Psychiatric exam: Normal Affect, Normal Mood - Skin Skin Exam: Dry, Warm Assessment and Plan: Patient is a 68-year-old woman with a past medical history of asthma, HTN, and previous TIAs who was admitted for evaluation and treatment of right should and arm heaviness. Code stroke was call in the ED. Patient was outside the time interval for tPA. Neurology team was consulted for management of aforementioned symptoms. TIA - 04/05/2018- CT Head without Contrast- No acute findings - 04/02/2018- CTA of Head and neck- Unremarkable - recommend MRI brain without contrast- - ordered and pending - recommend echocardiogram- ordered and pending - allow for permissive HTN (only treat BP that is higher than 220/110 mm Hg until ~ end of 04/06/2018) - recommend IVF NS at 100 mL/hr - continue secondary stroke prevention with aspirin 81 mg daily, plavix 75 mg daily, and statin - keep patient euglycemic, normothermic - continue PT/OT therapy Patient seen, case discussed with, and plan approved by attending physician, Dr. Patrick. Objective - Vital Signs/Intake and Output Vital Signs (last 24 hours): Temp Pulse Resp BP Pulse Ox 98.0 F 70 20 136/68 98 04/06/18 06:00 04/06/18 06:00 04/06/18 06:00 04/06/18 06:00 04/06/18 06:00 Intake and Output: 04/06/18 04/06/18 06:59 18:59 Intake Total 120 Balance 120 - Medications Medications: Current Medications Acetaminophen (Tylenol 325mg Tab) 650 mg PO Q6H PRN PRN Reason: Pain, moderate (4-7) Last Admin: 04/05/18 21:57 Dose: 650 mg Albuterol Sulfate (Albuterol 0.042% Inhal Sonia (1.25mg/3ml) Ud) 1.25 mg IH [id number] PRN PRN Reason: Wheezing Arformoterol Tartrate (Brovana) 15 mcg IH [id number] [facility] Aspirin (Aspirin Chewable) 81 mg PO DAILY [facility] Atorvastatin Calcium (Lipitor) 40 mg PO DIN [facility] Last Admin: 04/05/18 17:03 Dose: 40 mg Budesonide (Pulmicort Respules) 0.25 mg IH [id number] [facility] Last Admin: 04/05/18 19:48 Dose: 0.25 mg Clopidogrel Bisulfate (Plavix) 75 mg PO DAILY [facility] Heparin Sodium (Porcine) (Heparin) 5,000 units SC Q12 [facility]; Protocol Last Admin: 04/05/18 21:02 Dose: 5,000 units Hydralazine HCl (Apresoline) 10 mg IVP Q6 PRN PRN Reason: Other Dextrose/Sodium Chloride (Dextrose 5%/0.45% Ns 1000 Ml) 1,000 mls @ 50 mls/hr IV .Q20H [facility] Last Admin: 04/05/18 09:27 Dose: 50 mls/hr Pantoprazole Sodium (Protonix Ec Tab) 40 mg PO 0600 [facility] Last Admin: 04/06/18 06:00 Dose: 40 mg - Labs Labs: 04/06/18 06:30 04/06/18 06:30 PT 11.5 SECONDS (9.4-12.5) 04/05/18 04:40 INR 1.01 04/05/18 04:40 APTT 28.8 Seconds (25.1-36.5) 04/05/18 04:40
--- NOTE | 2018-04-06 11:20 | MRI ---
Date of service: 04/06/2018 PROCEDURE: MRI BRAIN WITHOUT CONTRAST HISTORY: r/o stroke COMPARISON: None available. TECHNIQUE: Multiplanar, multisequence MR images of the brain were obtained without intravenous contrast enhancement. FINDINGS: HEMORRHAGE: None DWI: There is an acute infarct in the left basal ganglia and posterior limb of the internal capsule. This measures 6 x 11 mm. This is best seen on image 13 series 3. The finding is also seen on T2 and FLAIR images. BRAIN PARENCHYMA: No mass effect or edema. Chronic microvascular changes are seen VENTRICLES: Unremarkable. No hydrocephalus. CRANIUM: Unremarkable. ORBITS: Grossly unremarkable. PARANASAL SINUSES/MASTOIDS: Clear VASCULAR SYSTEM: Skull base flow voids intact. OTHER FINDINGS: None. IMPRESSION: There is an acute infarct in the left basal ganglia and posterior limb of the internal capsule. This measures 6 x 11 mm.
--- NOTE | 2018-04-06 11:25 | MRI ---
Date of service: 04/06/2018 PROCEDURE: Magnetic Resonance Angiography Brain HISTORY: r/o stroke COMPARISON: None available. TECHNIQUE: 3D time of flight MR angiography of the intracranial arteries was performed. Rotating maximum intensity projection images were generated. FINDINGS: INTERNAL CAROTID ARTERIES: Unremarkable. The skull base, petrous, cavernous and supraclinoid segments are bilaterally widely patient. ANTERIOR CEREBRAL ARTERIES: Unremarkable. A1 and A2 segments are widely patent. Smaller distal branches unremarkable, as visualized. MIDDLE CEREBRAL ARTERIES: Unremarkable. M1 and M2 segments are widely patent. Perisylvian branches grossly symmetric. POSTERIOR CIRCULATION: Basilar Artery: Unremarkable. Distal Vertebral Arteries: Unremarkable. Posterior Cerebral Arteries: Unremarkable. Posterior Inferior Cerebellar Arteries: Unremarkable. ANEURYSM/ VASCULAR MALFORMATIONS: None. OTHER FINDINGS: None. IMPRESSION: Unremarkable MR angiography of the brain.
--- NOTE | 2018-04-06 11:46 | CARD ---
APPROVED REPORT Date of service: 04/06/2018 EXAM: Two-dimensional and M-mode echocardiogram with Doppler and color Doppler. INDICATION CVA/TIA 2D DIMENSIONS Left Atrium (2D)3.8 (1.6-4.0cm)IVSd1.2 (0.7-1.1cm) LVDd4.7 (3.9-5.9cm)PWd1.3 (0.7-1.1cm) LVDs3.1 (2.5-4.0cm)FS (%) 34.2 % LVEF (%)63.2 (>50%) M-Mode DIMENSIONS Aortic Root2.60 (2.2-3.7cm)Aortic Cusp Exc.1.90 (1.5-2.0cm) Aortic Valve AoV Peak Nysnrdfc921.0cm/Jolynn Peak GR.8mmHg Mitral Valve MV E Gndhsdud06.1cm/sMV A Xjpoxxak04.1cm/sE/A ratio1.2 TDI E/Lateral E'0.0E/Medial E'0.0 Tricuspid Valve TR Peak Akrtspay220vy/sRAP [id number] Peak Gr.12mmHg [id number] LEFT VENTRICLE The left ventricle is normal size. There is mild concentric left ventricular hypertrophy. The left ventricular function is normal. The left ventricular ejection fraction is within the normal range. EF 63%. RIGHT VENTRICLE The right ventricle is normal size. The right ventricular systolic function is normal. ATRIA The left atrium size is normal. The right atrium size is normal. AORTIC VALVE Aortic Valve leaflets Thickened. Valve Opening Normal. MITRAL VALVE Mitral Valve Leaflets thickened But Valve Opening Normal. Mitral regurgitation is mild. TRICUSPID VALVE The tricuspid valve is normal in structure. There is trace tricuspid regurgitation. PERICARDIAL EFFUSION There is no pericardial effusion. <Conclusion> The left ventricle is normal size. There is mild concentric left ventricular hypertrophy. The left ventricular function is normal. The left ventricular ejection fraction is within the normal range. EF 63%. The right ventricle is normal size. The right ventricular systolic function is normal. The left atrium size is normal. The right atrium size is normal. Aortic Valve leaflets Thickened. Valve Opening Normal. Mitral Valve Leaflets thickened But Valve Opening Normal. Mitral regurgitation is mild. The tricuspid valve is normal in structure. There is trace tricuspid regurgitation. There is no pericardial effusion.
--- NOTE | 2018-04-06 14:21 | US ---
PROCEDURE: Bilateral carotid artery duplex ultrasound HISTORY: Carotid stenosis PHYSICIAN(S): Vicente Wolf MD. TECHNIQUE: Duplex sonography and color-flow Doppler were used to evaluate the carotid bifurcations and limited segments of the vertebral arteries bilaterally. FINDINGS: There is moderate smooth heterogeneous echogenic plaque noted at the carotid bifurcations bilaterally. The peak systolic velocity in the proximal right internal carotid artery is 113 cm/sec. This corresponds to a 40-59 percent proximal right ICA stenosis. Normal systolic velocities are noted in the proximal right external carotid artery. There is antegrade flow in the right vertebral artery. The peak systolic velocity in the proximal left internal carotid artery is 112 cm/sec. This corresponds to a 40-59 percent proximal left ICA stenosis. Normal systolic velocities are noted in the proximal left external carotid artery. There is antegrade flow in the small left vertebral artery. IMPRESSION: 1. Bilateral 40-59 percent proximal ICA stenoses. 2. Antegrade flow in both vertebral arteries.
[2018-04-06] MEDS: Dextrose 5%/0.45% NS 1,000 ML IV SCH (21:46)
[2018-04-07] MEDS: Pantoprazole 40 mg EC Tab PO SCH (05:20)
[2018-04-07 06:11] VITALS: O2SAT 95
[2018-04-07 06:57] LABS: ALB/GLOB RATIO 1.2 (1.1-1.8); ALT/SGPT 18 U/L (7-56); AST/SGOT 28 U/L (14-36); BLOOD UREA NITROGEN 13 mg/dL (7-21); CALCIUM 9.2 mg/dL (8.4-10.5); GFR NON-AFRICAN AMERICAN > 60
[2018-04-07 07:31] LABS: BASO # 0.03 K/mm3 (0.0-2.0); BASO % 0.6 % (0.0-3.0); EOS # 0.1 (0.0-0.7); EOS % 2.2 % (1.5-5.0); GRAN # 3.18 (1.4-6.5); GRAN % 64.6 % (50.0-68.0); HEMOGLOBIN 11.4 g/dL (12.0-16.0); LYMPH # 1.2 (1.2-3.4); LYMPH % 23.7 % (22.0-35.0); MEAN CELL VOLUME 93.3 fl (80.0-105.0); MEAN CORPUSCULAR HEMOGLOBIN 29.5 pg (25.0-35.0); MEAN CORPUSCULAR HGB CONC 31.6 g/dl (31.0-37.0); MEAN PLATELET VOLUME 10.3 fl (7.0-11.0); MONO # 0.4 (0.1-0.6); MONO % 8.9 % (1.0-6.0); RBC 3.87 10^6/uL (3.5-6.1); RED CELL DISTRIBUTION WIDTH 13.8 % (11.5-14.5); WHITE BLOOD COUNT 4.9 10^3/uL (4.5-11.0)
[2018-04-07] MEDS: Budesonide 0.25 mg/2 ml Inhal Susp UD IH SCH ×2 (08:02→19:50)
--- NOTE | 2018-04-07 09:23 | CP.PCM.PN ---
<Barry Dawson - Last Filed: 04/07/18 14:50> Subjective - Date & Time of Evaluation Date of Evaluation: 04/07/18 Time of Evaluation: 14:00 - Subjective Subjective: Barry Dawson- Internal Medicine Resident- Progress Note on Behalf of Neurology Team Subjective: Patient seen and examined at bedside. No acute events overnight. Patient states right arm and hand weakness remains at baseline. Offers no new complaints at this time. Denies headache, confusion, dizziness, acute vision/auditory changes, weakness, focal deficits. Further denies fever, chills, chest pain, SOB. 12 point ROS negative except as indicated in HPI Physical Examination: - Constitutional Appears: No acute distress - Head Exam Head Exam: ATRAUMATIC, NORMOCEPHALIC - Eye Exam Eye Exam: EOMI - ENT Exam ENT Exam: Mucous Membranes Moist - Neck Exam Neck Exam: Full ROM - Respiratory Exam Respiratory Exam: NORMAL BREATHING PATTERN. 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 Left Upper extremity 5/5 muscle strength, Left lower extremities 5/5 muscle strength, sensation is intact to touch. - Psychiatric Exam Psychiatric exam: Normal Affect, Normal Mood - Skin Skin Exam: Dry, Warm Assessment and Plan: Patient is a 68-year-old woman with a past medical history of asthma, HTN, and previous TIAs who was admitted for evaluation and treatment of right should and arm heaviness. Code stroke was call in the ED. Patient was outside the time interval for tPA. Neurology team was consulted for management of aforementioned symptoms. TIA - 04/05/2018- CT Head without Contrast- No acute findings - 04/02/2018- CTA of Head and neck- Unremarkable - 04/06/2018 MRI brain without contrast- There is an acute infarct in the left basal ganglia and posterior limb of the internal capsule. This measures 6 x 11 mm. - 04/06/2018 MRA brain- Unremarkable MR angiography of the brain. - 04/06/2018 echocardiogram- left ventricular ejection fraction is within the normal range. EF 63%. - continue secondary stroke prevention with aspirin 81 mg daily, plavix 75 mg daily, and statin - keep patient euglycemic, normothermic - continue PT/OT therapy Patient seen, case discussed with, and plan approved by attending physician, Dr. Patrick. Objective - Vital Signs/Intake and Output Vital Signs (last 24 hours): Temp Pulse Resp BP Pulse Ox 98.2 F 68 19 165/89 H 95 04/07/18 06:00 04/07/18 06:00 04/07/18 06:00 04/07/18 06:00 04/07/18 06:00 Intake and Output: 04/07/18 04/07/18 06:59 18:59 Intake Total 2360 Output Total 8 Balance 2352 - Medications Medications: Current Medications Acetaminophen (Tylenol 325mg Tab) 650 mg PO Q6H PRN PRN Reason: Pain, moderate (4-7) Last Admin: 04/05/18 21:57 Dose: 650 mg Albuterol Sulfate (Albuterol 0.042% Inhal Sonia (1.25mg/3ml) Ud) 1.25 mg IH [id number] PRN PRN Reason: Wheezing Amlodipine Besylate (Norvasc) 5 mg PO DAILY [facility] Arformoterol Tartrate (Brovana) 15 mcg IH [id number] [facility] Aspirin (Aspirin Chewable) 81 mg PO DAILY [facility] Last Admin: 04/06/18 09:36 Dose: 81 mg Atorvastatin Calcium (Lipitor) 40 mg PO DIN [facility] Last Admin: 04/06/18 18:00 Dose: 40 mg Budesonide (Pulmicort Respules) 0.25 mg IH [id number] [facility] Last Admin: 04/07/18 08:02 Dose: Not Given Clopidogrel Bisulfate (Plavix) 75 mg PO DAILY [facility] Last Admin: 04/06/18 09:36 Dose: 75 mg Heparin Sodium (Porcine) (Heparin) 5,000 units SC Q12 [facility]; Protocol Last Admin: 04/06/18 21:45 Dose: 5,000 units Hydralazine HCl (Apresoline) 10 mg IVP Q6 PRN PRN Reason: Other Dextrose/Sodium Chloride (Dextrose 5%/0.45% Ns 1000 Ml) 1,000 mls @ 50 mls/hr IV .Q20H [facility] Last Admin: 04/06/18 21:46 Dose: Not Given Pantoprazole Sodium (Protonix Ec Tab) 40 mg PO 0600 [facility] Last Admin: 04/07/18 05:20 Dose: 40 mg - Labs Labs: 04/07/18 06:00 04/07/18 06:00 PT 11.5 SECONDS (9.4-12.5) 04/05/18 04:40 INR 1.01 04/05/18 04:40 APTT 28.8 Seconds (25.1-36.5) 04/05/18 04:40 <Aletha Patrick - Last Filed: 04/07/18 22:40> Objective - Vital Signs/Intake and Output Vital Signs (last 24 hours): Temp Pulse Resp BP Pulse Ox 98.4 F 72 19 152/94 H 95 04/07/18 17:59 04/07/18 18:00 04/07/18 17:59 04/07/18 17:59 04/07/18 06:00 Intake and Output: 04/07/18 04/08/18 18:59 06:59 Intake Total 1690 Output Total 7 Balance 1683 - Labs Labs: 04/07/18 06:00 04/07/18 06:00 PT 11.5 SECONDS (9.4-12.5) 04/05/18 04:40 INR 1.01 04/05/18 04:40 APTT 28.8 Seconds (25.1-36.5) 04/05/18 04:40 Assessment and Plan - Assessment and Plan (Free Text) Assessment: There is an acute stroke in the left basal ganglia that was most likley ischemic and embolic with completed stroke workup. All medical record entries made by the resident were at my direction and personally dictated by me. I have reviewed the chart and agree that the record accurately reflects my personal performance of the history, physical exam, medical decision making, and the department course for this patient. I have also personally directed, reviewed, and agree with the discharge instructions and disposition.
[2018-04-07] MEDS ORDERED: Dextrose 5%/0.45% NS 1,000 ML IV SCH (10:47)
--- NOTE | 2018-04-07 15:54 | CP.PCM.DIS ---
<Eliud Horton - Last Filed: 04/07/18 15:40> Provider - Provider Date of Admission: 04/06/18 13:16 Attending physician: Catrachito Rodney MD Primary care physician: Elda Josue MD Time Spent in preparation of Discharge (in minutes): 40 Hospital Course - Lab Results Lab Results: Most Recent Lab Values WBC 4.9 10^3/uL (4.5-11.0) 04/07/18 06:00 RBC 3.87 10^6/uL (3.5-6.1) 04/07/18 06:00 Hgb 11.4 g/dL (12.0-16.0) L 04/07/18 06:00 Hct 36.1 % (36.0-48.0) 04/07/18 06:00 MCV 93.3 fl (80.0-105.0) 04/07/18 06:00 MCH 29.5 pg (25.0-35.0) 04/07/18 06:00 MCHC 31.6 g/dl (31.0-37.0) 04/07/18 06:00 RDW 13.8 % (11.5-14.5) 04/07/18 06:00 Plt Count 306 10^3/uL (120.0-450.0) 04/07/18 06:00 MPV 10.3 fl (7.0-11.0) 04/07/18 06:00 Gran % 64.6 % (50.0-68.0) 04/07/18 06:00 Lymph % (Auto) 23.7 % (22.0-35.0) 04/07/18 06:00 [place] % (Auto) 8.9 % (1.0-6.0) H 04/07/18 06:00 Eos % (Auto) 2.2 % (1.5-5.0) 04/07/18 06:00 Baso % (Auto) 0.6 % (0.0-3.0) 04/07/18 06:00 Gran # 3.18 (1.4-6.5) 04/07/18 06:00 Lymph # (Auto) 1.2 (1.2-3.4) 04/07/18 06:00 [place] # (Auto) 0.4 (0.1-0.6) 04/07/18 06:00 Eos # (Auto) 0.1 (0.0-0.7) 04/07/18 06:00 Baso # (Auto) 0.03 K/mm3 (0.0-2.0) 04/07/18 06:00 PT 11.5 SECONDS (9.4-12.5) 04/05/18 04:40 INR 1.01 04/05/18 04:40 APTT 28.8 Seconds (25.1-36.5) 04/05/18 04:40 Sodium 139 mmol/L (132-148) 04/07/18 06:00 Potassium 3.9 mmol/L (3.6-5.0) 04/07/18 06:00 Chloride 104 mmol/L (98-107) 04/07/18 06:00 Carbon Dioxide 29 mmol/L (21-33) 04/07/18 06:00 Anion Gap 10 (10-20) 04/07/18 06:00 BUN 13 mg/dL (7-21) 04/07/18 06:00 Creatinine 0.9 mg/dl (0.7-1.2) 04/07/18 06:00 Est GFR ( Amer) > 60 04/07/18 06:00 Est GFR (Non-Af Amer) > 60 04/07/18 06:00 POC Glucose (mg/dL) 88 mg/dL (65-110) 04/07/18 11:29 Random Glucose 108 mg/dL (70-110) 04/07/18 06:00 Hemoglobin A1c 6.0 % (4.2-6.5) 04/05/18 04:40 Calcium 9.2 mg/dL (8.4-10.5) 04/07/18 06:00 Phosphorus 3.2 mg/dL (2.5-4.5) 04/05/18 04:40 Magnesium 2.0 mg/dL (1.7-2.2) 04/05/18 04:40 Iron 57 ug/dL (45-180) 04/05/18 04:40 TIBC 236 ug/dL (265-497) L 04/05/18 04:40 % Saturation 24 % (20-55) 04/05/18 04:40 Total Bilirubin 0.4 mg/dL (0.2-1.3) 04/07/18 06:00 AST 28 U/L (14-36) 04/07/18 06:00 ALT 18 U/L (7-56) 04/07/18 06:00 Alkaline Phosphatase 98 U/L (38-126) 04/07/18 06:00 Troponin I < 0.01 ng/mL 04/05/18 04:40 Total Protein 7.3 g/dL (5.8-8.3) 04/07/18 06:00 Albumin 4.0 g/dL (3.0-4.8) 04/07/18 06:00 Globulin 3.3 gm/dL 04/07/18 06:00 Albumin/Globulin Ratio 1.2 (1.1-1.8) 04/07/18 06:00 Triglycerides 61 mg/dL (35-160) 04/05/18 04:40 Cholesterol 276 mg/dL (130-200) H 04/05/18 04:40 LDL Cholesterol Direct 152 mg/dL (0-129) H 04/05/18 04:40 HDL Cholesterol 81 mg/dL (29-60) H 04/05/18 04:40 Thyroxine (T4) 7.6 ug/dL (5.5-11.0) 04/05/18 04:40 TSH 3rd Generation 0.64 mIU/mL (0.46-4.68) 04/05/18 04:40 Urine Color Light yellow (YELLOW) 04/05/18 16:45 Urine Appearance Sl cloudy (CLEAR) 04/05/18 16:45 Urine pH 6.5 (4.7-8.0) 04/05/18 16:45 Ur Specific [place] <= 1.005 (1.005-1.035) 04/05/18 16:45 Urine Protein Negative mg/dL (<30 mg/dL) 04/05/18 16:45 Urine Glucose (UA) Negative mg/dL (NEGATIVE) 04/05/18 16:45 Urine Ketones Negative mg/dL (NEGATIVE) 04/05/18 16:45 Urine Blood Negative (NEGATIVE) 04/05/18 16:45 Urine Nitrate Negative (NEGATIVE) 04/05/18 16:45 Urine Bilirubin Negative (NEGATIVE) 04/05/18 16:45 Urine Urobilinogen 0.2 E.U./dL (<1 E.U./dL) 04/05/18 16:45 Ur Leukocyte Esterase Negative [place]/uL (NEGATIVE) 04/05/18 16:45 Blood Type A POSITIVE 04/05/18 04:40 Blood Type Confirm A POSITIVE 04/05/18 06:40 Antibody Screen Negative 04/05/18 04:40 BBK History Checked No verified bt 04/05/18 04:40 - Hospital Course Hospital Course: HPI: This is a 68 year old female with past medical history of of transient ischemic attack in 03/2013, asthma, hypertension and hyperthyroidism presenting to the ED for right should and arm "heaviness" that began in the evening. She states she went to her PMD on 03/04/18 and had a systolic blood pressure of 180, and was started on an unknown medicine. After returning home, she noticed that her right shoulder was painful and she felt a heaviness in her right arm. She also states it was difficult to write with her right hand. She denies any relieving or aggravating factors. She denies any similar symptoms in the past. She denies any loss of sensation, muscle weakness, difficulty speaking and impaired balance. At time of examination, patient states symptoms have resolved and currently she denies any complaints. She denies chest pain, shortness of breath, headaches, fevers, cough, back pain, abdominal pain, nausea, vomiting, diarrhea, constipation, urinary complaints, swelling, recent travel, sickness and trauma. 12 point review of systems noted here, otherwise unremarkable. In ED, code stroke was called. Patient was given aspirin 325mg and 1L of normal saline. Chest Xray shows no acute process and Head CT showed mild chronic microvascular disease and no evidence of acute intracranial pathology. EKG showed NSR at 70bpm. During the course of admission: Neurology (Dr. Patrick) was consulted was stroke workup. Carotid artery ultrasound showed bilateral 40-59% stenoses of proximal b/l proximal ICA. CTA of the head/neck showed no acute findings. MRA of the head was unremarkable. 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 Per Neurology recommendations, pt was allowed permissive hypertension within the first 24 hours, was given normal saline IV fluids @ 100cc/hr, and given aspirin, plavix, and lipitor for secondary stroke prevention in addition to restarting home norvasc. Physical therapy/Occupational therapy evaluation was performed, and patient was recommended discharge to acute rehab for ~4 weeks of therapy. Patient is medically stable for discharge to [facility], as per Dr. Rodney. She is instructed to continue taking all home medications as currently prescribed. Patient is instructed to continue taking the following medications for prevention of future strokes. Scripts have been provided: Aspirin 81 mg PO daily Lipitor 40 mg PO once daily at dinner time Plavix 75 mg PO daily Patient is instructed to follow up with her primary care provider (Dr. Josue) within 1 week of discharge from acute rehab for continued care and management. If symptoms worsen, please return to ED. The following is a summary of hospital course. For further detail, please refer to EMR. - Date & Time of H&P Date of H&P: 04/07/18 Time of H&P: 15:40 Discharge Exam - Head Exam Head Exam: ATRAUMATIC, NORMAL INSPECTION, NORMOCEPHALIC - Eye Exam Eye Exam: EOMI, Normal appearance Pupil Exam: NORMAL ACCOMODATION - ENT Exam ENT Exam: Mucous Membranes Moist, Normal Exam - Neck Exam Neck exam: Full Rom, Normal Inspection - Respiratory Exam Respiratory Exam: Clear to PA & Lateral, NORMAL BREATHING PATTERN, UNREMARKABLE. absent: Accessory Muscle Use, Rales, Rhonchi, Wheezes, Respiratory Distress, Stridor - Cardiovascular Exam Cardiovascular Exam: REGULAR RHYTHM, +S1, +S2 - GI/Abdominal Exam GI & Abdominal Exam: Normal Bowel Sounds, Soft, Unremarkable. absent: Distended, Firm, Guarding, Rebound, Rigid, Tenderness - Extremities Exam Extremities exam: normal capillary refill, normal inspection, pedal pulses present Additional comments: RUE 3/5, LUE 5/5 - Back Exam Back exam: NORMAL INSPECTION - Neurological Exam Neurological exam: Alert, Oriented x3 - Psychiatric Exam Psychiatric exam: Normal Affect, Normal Mood - Skin Skin Exam: Dry, Intact, Normal Color, Warm - Additional Findings Additional findings: mild R sided facial droop R perioral numbness Discharge Plan - Discharge Medications Prescriptions: Aspirin [Aspirin Chewable] 81 mg PO DAILY #30 chew Atorvastatin [Lipitor] 40 mg PO DIN #30 tab Clopidogrel [Plavix] 75 mg PO DAILY #30 tab - Follow Up Plan Condition: STABLE Disposition: HOME/ ROUTINE Instructions: High Blood Pressure (DC), Transient Ischemic Attack (DC), Low Salt Diet, Lowering the Risk of Having Another Stroke, Medicines After an Ischemic Stroke, Left-Side Stroke (DC), Stroke Rehab Information, Stroke Rehab Exercises Additional Instructions: Patient is medically stable for discharge to [facility], as per Dr. Rodney. She is instructed to continue taking all home medications as currently prescribed. Patient is instructed to continue taking the following medications for prevention of future strokes. Scripts have been provided: Aspirin 81 mg PO daily Lipitor 40 mg PO once daily at dinner time Plavix 75 mg PO daily Patient is instructed to follow up with her primary care provider (Dr. Josue) within 1 week of discharge from acute rehab for continued care and management. If symptoms worsen, please return to ED. Referrals: Elda Josue MD [Primary Care Provider] - <Catrachito Rodney - Last Filed: 04/07/18 16:39> Provider - Provider Date of Admission: 04/06/18 13:16 Attending physician: Catrachito Rodney MD Primary care physician: Elda Josue MD Hospital Course - Lab Results Lab Results: Most Recent Lab Values WBC 4.9 10^3/uL (4.5-11.0) 04/07/18 06:00 RBC 3.87 10^6/uL (3.5-6.1) 04/07/18 06:00 Hgb 11.4 g/dL (12.0-16.0) L 04/07/18 06:00 Hct 36.1 % (36.0-48.0) 04/07/18 06:00 MCV 93.3 fl (80.0-105.0) 04/07/18 06:00 MCH 29.5 pg (25.0-35.0) 04/07/18 06:00 MCHC 31.6 g/dl (31.0-37.0) 04/07/18 06:00 RDW 13.8 % (11.5-14.5) 04/07/18 06:00 Plt Count 306 10^3/uL (120.0-450.0) 04/07/18 06:00 MPV 10.3 fl (7.0-11.0) 04/07/18 06:00 Gran % 64.6 % (50.0-68.0) 04/07/18 06:00 Lymph % (Auto) 23.7 % (22.0-35.0) 04/07/18 06:00 [place] % (Auto) 8.9 % (1.0-6.0) H 04/07/18 06:00 Eos % (Auto) 2.2 % (1.5-5.0) 04/07/18 06:00 Baso % (Auto) 0.6 % (0.0-3.0) 04/07/18 06:00 Gran # 3.18 (1.4-6.5) 04/07/18 06:00 Lymph # (Auto) 1.2 (1.2-3.4) 04/07/18 06:00 [place] # (Auto) 0.4 (0.1-0.6) 04/07/18 06:00 Eos # (Auto) 0.1 (0.0-0.7) 04/07/18 06:00 Baso # (Auto) 0.03 K/mm3 (0.0-2.0) 04/07/18 06:00 PT 11.5 SECONDS (9.4-12.5) 04/05/18 04:40 INR 1.01 04/05/18 04:40 APTT 28.8 Seconds (25.1-36.5) 04/05/18 04:40 Sodium 139 mmol/L (132-148) 04/07/18 06:00 Potassium 3.9 mmol/L (3.6-5.0) 04/07/18 06:00 Chloride 104 mmol/L (98-107) 04/07/18 06:00 Carbon Dioxide 29 mmol/L (21-33) 04/07/18 06:00 Anion Gap 10 (10-20) 04/07/18 06:00 BUN 13 mg/dL (7-21) 04/07/18 06:00 Creatinine 0.9 mg/dl (0.7-1.2) 04/07/18 06:00 Est GFR ( Amer) > 60 04/07/18 06:00 Est GFR (Non-Af Amer) > 60 04/07/18 06:00 POC Glucose (mg/dL) 88 mg/dL (65-110) 04/07/18 11:29 Random Glucose 108 mg/dL (70-110) 04/07/18 06:00 Hemoglobin A1c 6.0 % (4.2-6.5) 04/05/18 04:40 Calcium 9.2 mg/dL (8.4-10.5) 04/07/18 06:00 Phosphorus 3.2 mg/dL (2.5-4.5) 04/05/18 04:40 Magnesium 2.0 mg/dL (1.7-2.2) 04/05/18 04:40 Iron 57 ug/dL (45-180) 04/05/18 04:40 TIBC 236 ug/dL (265-497) L 04/05/18 04:40 % Saturation 24 % (20-55) 04/05/18 04:40 Total Bilirubin 0.4 mg/dL (0.2-1.3) 04/07/18 06:00 AST 28 U/L (14-36) 04/07/18 06:00 ALT 18 U/L (7-56) 04/07/18 06:00 Alkaline Phosphatase 98 U/L (38-126) 04/07/18 06:00 Troponin I < 0.01 ng/mL 04/05/18 04:40 Total Protein 7.3 g/dL (5.8-8.3) 04/07/18 06:00 Albumin 4.0 g/dL (3.0-4.8) 04/07/18 06:00 Globulin 3.3 gm/dL 04/07/18 06:00 Albumin/Globulin Ratio 1.2 (1.1-1.8) 04/07/18 06:00 Triglycerides 61 mg/dL (35-160) 04/05/18 04:40 Cholesterol 276 mg/dL (130-200) H 04/05/18 04:40 LDL Cholesterol Direct 152 mg/dL (0-129) H 04/05/18 04:40 HDL Cholesterol 81 mg/dL (29-60) H 04/05/18 04:40 Thyroxine (T4) 7.6 ug/dL (5.5-11.0) 04/05/18 04:40 TSH 3rd Generation 0.64 mIU/mL (0.46-4.68) 04/05/18 04:40 Urine Color Light yellow (YELLOW) 11/04/18 16:45 Urine Appearance Sl cloudy (CLEAR) 04/05/18 16:45 Urine pH 6.5 (4.7-8.0) 04/05/18 16:45 Ur Specific [place] <= 1.005 (1.005-1.035) 04/05/18 16:45 Urine Protein Negative mg/dL (<30 mg/dL) 04/05/18 16:45 Urine Glucose (UA) Negative mg/dL (NEGATIVE) 04/05/18 16:45 Urine Ketones Negative mg/dL (NEGATIVE) 04/05/18 16:45 Urine Blood Negative (NEGATIVE) 04/05/18 16:45 Urine Nitrate Negative (NEGATIVE) 04/05/18 16:45 Urine Bilirubin Negative (NEGATIVE) 04/05/18 16:45 Urine Urobilinogen 0.2 E.U./dL (<1 E.U./dL) 04/05/18 16:45 Ur Leukocyte Esterase Negative [place]/uL (NEGATIVE) 04/05/18 16:45 Blood Type A POSITIVE 04/05/18 04:40 Blood Type Confirm A POSITIVE 04/05/18 06:40 Antibody Screen Negative 04/05/18 04:40 BBK History Checked No verified bt 04/05/18 04:40 Attending/Attestation - Attestation I have personally seen and examined this patient.: Yes I have fully participated in the care of the patient.: Yes I have reviewed all pertinent clinical information, including history, physical exam and plan: Yes Notes (Text): 04/07/18 16:37 68 year old female with past medical history of asthma, hypertension and prior TIA who presented with right upper extremity weakness. CT head and CTA/MRA head were negative for acute findings. However MRI brain showed acute infarct in left basal ganglia, posterior limb of the internal capsule. Echocardiogram and carotid dopplers were reviewed. She was seen by neurology and started on aspirin, plavix and statin. She was also seen by PT who recommended acute rehab . Patient will be discharged to acute rehab. Follow up with pmd and neurology. Continue with aspirin, plavix and statin. Also started on norvasc for hypertension. Catrachito Rodney MD Hospitalist.
[2018-04-07 18:00] VITALS: BP 152/94; RESP 19; TEMP 98.4
[2018-04-07 18:41] VITALS: PULSE 72
== END 2018-04-07 20:52 | DRG 66 ==
LOC: ED 03:56 → ERH 05:23 → 2RSO 08:22 → OBSVTOIN 04-06 13:16
PROVIDERS: ADMIT Internal Medicine; ATTEND Internal Medicine
DX: I63.9 Cerebral infarction, unspecified (principal); I10 Essential (primary) hypertension; E05.90 Thyrotoxicosis, unspecified without thyrotoxic crisis or storm; D64.9 Anemia, unspecified; E78.5 Hyperlipidemia, unspecified; J45.909 Unspecified asthma, uncomplicated; Z79.02 Long term (current) use of antithrombotics/antiplatelets; Z79.82 Long term (current) use of aspirin; Z86.73 Personal history of transient ischemic attack (TIA), and cerebral infarction without residual deficits

== ENCOUNTER 2018-04-26 15:56 | Emergency (ER) | payer BC ==
[2018-04-26 16:32] VITALS: BP 134/85; PULSE 70; RESP 18; TEMP 98; O2SAT 100; BMI 36.1
--- NOTE | 2018-04-26 16:43 | ED PDOC ---
Arrival/HPI - General Chief Complaint: ENT Problem Time Seen by Provider: 04/26/18 16:34 Historian: Patient - History of Present Illness Narrative History of Present Illness (Text): 04/26/18 16:45 A 68 year old female, with no significant past medical history, presents to the emergency department complaining of nose issue starting today. Patient reports she feels something in her left nare and is concerned. Patient denies any e pistaxis, any other complaints at this time. Also, patient requests to be given Aspirin as she has ran out of her prescription. Time/Duration: Other (started today) Past Medical History - Provider Review Nursing Documentation Reviewed: Yes - Infectious Disease Hx of Infectious Diseases: None - Tetanus Immunization Tetanus Immunization: Unknown - Cardiac Hx Cardiac Disorders: Yes Hx Hypertension: Yes - Pulmonary Hx Respiratory Disorders: Yes Hx Asthma: Yes - Neurological Hx Neurological Disorder: Yes HX Cerebrovascular Accident: Yes (TIA in 03/2013) - HEENT Hx HEENT Disorder: No - Renal Hx Renal Disorder: No - Endocrine/Metabolic Hx Endocrine Disorders: No - Hematological/Oncological Hx Blood Disorders: No - Integumentary Hx Dermatological Disorder: Yes (Healing rash noted to back.) - Musculoskeletal/Rheumatological Hx Musculoskeletal Disorders: No - Gastrointestinal Hx Gastrointestinal Disorders: No - Genitourinary/Gynecological Hx Genitourinary Disorders: No - Psychiatric Hx Psychophysiologic Disorder: No Hx Substance Use: No - Past Surgical History Past Surgical History: No Previous - Anesthesia Hx Anesthesia: No - Suicidal Assessment Feels Threatened In Home Enviroment: No Family/Social History - Physician Review Nursing Documentation Reviewed: Yes Family/Social History: No Known Family HX Smoking Status: Unknown If Ever Smoked Hx Alcohol Use: No Hx Substance Use: No Hx Substance Use Treatment: No Allergies/Home Meds Allergies/Adverse Reactions: Allergies codeine Adverse Reaction (Verified 04/26/18 16:34) HEADACHE Home Medications: Home Meds Medication Instructions Recorded Confirmed RX: amLODIPine [Norvasc] 5 mg PO DAILY 04/06/18 04/07/18 RX: Acetaminophen [Tylenol 325mg 650 mg PO Q6 PRN 04/07/18 04/07/18 tab] Review of Systems - Physician Review All systems were reviewed & negative as marked: Yes - Review of Systems ENT: absent: Epistaxis Respiratory: absent: SOB Physical Exam - Physical Exam Narrative Physical Exam (Text): Constitutional: No acute distress. Head: Normocephalic. Atraumatic. Eyes: PERRL. ENT: Moist mucous membranes. No epistaxis, no foreign object, no nasal congestion. No other acute findings on examination, rest is unremarkable. Vital Signs Reviewed: Yes Vital Signs Temp Pulse Resp BP Pulse Ox 04/26/18 16:30 98.0 F 70 18 134/85 100 Temperature: Afebrile Blood Pressure: Normal Pulse: Regular Respiratory Rate: Normal Appearance: Positive for: Well-Appearing, Non-Toxic, Comfortable Pain Distress: None Mental Status: Positive for: Alert and Oriented X 3 Medical Decision Making ED Course and Treatment: 04/26/18 16:46 Impression: 68 year old female with sensation of something in left nare with no history of trauma or foreign body. No abnormalities on exam with otoscope. Advised f/u with ENT. Plan: -- Aspirin - Scribe Statement The provider has reviewed the documentation as recorded by the Mariiaibparth Ledezma Provider Scribe Attestation: All medical record entries made by the Scribparth were at my direction and personally dictated by me. I have reviewed the chart and agree that the record accurately reflects my personal performance of the history, physical exam, medical decision making, and the department course for this patient. I have also personally directed, reviewed, and agree with the discharge instructions and disposition. Disposition/Present on Arrival - Present on Arrival Any Indicators Present on Arrival: No History of DVT/PE: No History of Uncontrolled Diabetes: No Urinary Catheter: No History of Decub. Ulcer: No History Surgical Site Infection Following: None - Disposition Have Diagnosis and Disposition been Completed?: Yes Diagnosis: Nasal discomfort Disposition: HOME/ ROUTINE Disposition Time: 16:42 Patient Plan: Discharge Condition: STABLE Prescriptions: Guaifenesin [Mucinex] 600 mg PO Q12H #18 tab.er.12h Referrals: Samm Sneed DO [Staff Provider] - Follow up with primary Forms: [employer] (S[place]i)
[2018-04-26] MEDS ORDERED: guaiFENesin-DM 600-30 mg ER Tab PO STA (16:47)
== END 2018-04-26 17:08 | disposition home or self-care (01) ==
LOC: ED 15:56
DX: J34.89 Other specified disorders of nose and nasal sinuses (principal)